=== PATIENT | male | born 1940 | race Two or more races ===

== ENCOUNTER → 2019-06-18 | Outpatient (CLI) | payer MEDICARE, MEDICAID ==
[~2019-06-18] MED LIST: FAMO-12 PO; FUR20T PO; HYDR10TA26 PO; LEVE100020 PO; LORA0.5T12 PO; SERT-274 PO; SIMV-13 PO; TAMS0.4C36 PO; TAMS1CAP25 PO
[2019-06-18 12:49] LABS: Basophils # (auto) 0.1 uL; Basophils % (auto) 1.3 % (0.0-2.0); Eosinophils # (auto) 0.2 uL; Eosinophils % (auto) 4.7 % (0.0-7.0); Hematocrit 38.3 % (41.0-53.0); Hemoglobin 12.7 g/dL (13.5-17.5); Lymphocytes # (auto) 0.4 uL; Lymphocytes % (auto) 9.5 % (10.0-50.0); Mean Corpuscular Hemoglobin 28.7 pg (28.0-32.0); Mean Corpuscular Hgb Conc. 33.2 g/dL (32.0-36.0); Mean Corpuscular Volume 86.6 fL (80.0-100.0); Monocytes # (auto) 0.6 uL; Monocytes % (auto) 14.7 % (0.0-12.0); Neutrophils # (auto) 2.6 uL; Neutrophils % (auto) 69.8 % (37.0-80.0); Nucleated Red Blood Cells % 0.1 %; Platelet Count (auto) 152 10^3/uL (140-450); Red Blood Cells 4.43 10^6/uL (4.5-5.90); Red Cell Distribution Width 18.2 % (11.8-14.3); White Blood Cell 3.8 10^3/uL (4.4-10.8)
[2019-06-18 13:31] LABS: Albumin 3.9 g/dL (3.4-5.0); Calcium 8.8 mg/dL (8.5-10.1); Potassium 3.7 mmol/L (3.5-5.1)
[2019-06-18 13:36] LABS: BUN/Creatinine Ratio 17.4; Bilirubin, Total 0.4 mg/dL (0.2-1.0); Total Protein 8.5 g/dL (6.4-8.2)
== END | disposition home or self-care (01) ==
LOC: LAB 11:47
PROVIDERS: ATTEND Nurse Practitioner
DX: E78.5 Hyperlipidemia, unspecified (principal); R97.20 Elevated prostate specific antigen [PSA]
CPT/HCPCS: 36415; 80053; 80061; 84153; 84154; 84443; 85025

== ENCOUNTER 2020-07-18 14:11 | Inpatient (IN) | payer MEDICARE, MEDICAID ==
[~2020-07-18] VITALS: Ht 172.7 cm; Wt 63.3 kg
[~2020-07-18 14:11] MED LIST changes: -ASPI-498 PO; -CARB6.5S44 OT; -FURO40TA4 PO; -LOSA-69 PO; -OXCA600T3 PO; -POTA1TAB64 PO
[2020-07-18] MEDS ORDERED: SODIUM CHLORIDE 0.9% 500 ML IV ONE (14:45)
[2020-07-18 15:45] LABS: White Blood Cell 3.4 10^3/uL (4.4-10.8)
[2020-07-18 15:47] LABS: Hematocrit 21.8 % (41.0-53.0); Mean Corpuscular Hemoglobin 14.6 pg (28.0-32.0); Mean Corpuscular Hgb Conc. 26.4 g/dL (32.0-36.0); Platelet Count (auto) 200 10^3/uL (140-450); Red Blood Cells 3.96 10^6/uL (4.5-5.90)
[2020-07-18 15:53] LABS: Hemoglobin 5.8 g/dL (13.5-17.5); Red Cell Distribution Width 22.6 % (11.8-14.3)
[2020-07-18 15:54] LABS: Basophils % (manual) 0 (0.0-2.0); Blast Cells 0; Eosinophils % (manual) 0 (0-7); Myelocytes % 0; Promyelocytes % 0; Reactive Lymphocytes 0
[2020-07-18] MEDS ORDERED: MORPHINE SULF INJ 2 MG/ML SYRINGE 1ML IV PRN (16:00)
[2020-07-18] MEDS ORDERED: NITROGLYCERIN 0.4 MG SL TAB SL PRN (16:00)
[2020-07-18 16:02] LABS: Albumin 3.7 g/dL (3.4-5.0); BUN/Creatinine Ratio 14.3; Calcium 8.7 mg/dL (8.5-10.1); Magnesium 1.9 mg/dL (1.6-2.6); Potassium 3.4 mmol/L (3.5-5.1)
[2020-07-18 16:11] LABS: Bilirubin, Total 0.5 mg/dL (0.2-1.0); Total Protein 7.4 g/dL (6.4-8.2)
[2020-07-18 16:23] LABS: INR 1.2 (0.9-1.15); Partial Thromboplastin Time 26.3 sec (23.0-31.2)
[2020-07-18 16:55] VITALS: BP 124/63
[2020-07-18 17:15] VITALS: BP 127/62
[2020-07-18] MEDS ORDERED: FURO40TA4 PO (17:16)
[2020-07-18] MEDS ORDERED: ASPI-498 PO (17:16)
[2020-07-18] MEDS ORDERED: OXCA600T3 PO (17:16)
[2020-07-18] MEDS ORDERED: POTA1TAB64 PO (17:16)
[2020-07-18] MEDS ORDERED: CARB6.5S44 OT (17:16)
[2020-07-18] MEDS ORDERED: LOSA-69 PO (17:16)
[2020-07-18 17:30] VITALS: BP 132/64
[2020-07-18 17:38] LABS: Band Neutrophils % (manual) 2; Lymphocytes % (manual) 12 (10.0-50.0); Metamyelocytes % 1; Monocytes % (manual) 6 (0-12)
[2020-07-18 18:00] VITALS: BP 135/72
[2020-07-18] MEDS ORDERED: LACTATED RINGER'S 1,000 ML IV ONE (19:30)
[2020-07-18] MEDS ORDERED: SODIUM CHLORIDE 0.9% 1,000 ML IV SCH (19:30)
[2020-07-18] MEDS ORDERED: POTASSIUM CHL 20 Meq TABLET PO ONE (19:30)
[2020-07-18] MEDS ORDERED: SODIUM FERR GLUC 62.5MG/5ML 125 MG in SODIUM CHL 0.9% 100 ML IV ONE (20:00)
[2020-07-18 21:00] VITALS: BP 172/82
[2020-07-18] MEDS: PANTOPRAZOLE 40 MG/10 ML VIAL INJ IV SCH (21:27)
[2020-07-18 22:10] VITALS: BP 169/96
[2020-07-18] MEDS: OXcarbazepine 300 MG TAB PO SCH (22:47)
[2020-07-18] MEDS: ATORVASTATIN 20 MG TAB PO SCH (22:47)
[2020-07-18] MEDS ORDERED: cloNIDine HCL 0.1 MG TAB PO ONE (23:00)
[2020-07-19 05:00] VITALS: BP 145/81
[2020-07-19] MEDS ORDERED: FUROSEMIDE 20 MG/2 ML VIAL IV SCH (06:00)
[2020-07-19 07:36] LABS: Basophils # (auto) 0 10 ^3/uL (0-0.2); Basophils % (auto) 0.8 % (0.0-2.0); Eosinophils # (auto) 0.1 10 ^3/uL (0-0.8); Eosinophils % (auto) 1.2 % (0.0-7.0); Hemoglobin 7.3 g/dL (13.5-17.5); Lymphocytes # (auto) 0.4 10 ^3/uL (0.4-5.4); Lymphocytes % (auto) 6.6 % (10.0-50.0); Mean Corpuscular Hemoglobin 15.4 pg (28.0-32.0); Mean Corpuscular Hgb Conc. 25.1 g/dL (32.0-36.0); Mean Corpuscular Volume 61.3 fL (80.0-100.0); Monocytes # (auto) 0.6 10 ^3/uL (0-1.3); Monocytes % (auto) 9.9 % (0.0-12.0); Neutrophils # (auto) 4.6 10 ^3/uL (1.6-8.6); Neutrophils % (auto) 81.5 % (37.0-80.0); Nucleated Red Blood Cells % 2.7 %; Platelet Count (auto) 162 10^3/uL (140-450); Red Blood Cells 4.73 10^6/uL (4.5-5.90); White Blood Cell 5.6 10^3/uL (4.4-10.8)
[2020-07-19] MEDS ORDERED: diphenhdrAMINE HCL 50 MG/1 ML VL ONE (08:13)
[2020-07-19] MEDS ORDERED: LIDOCAINE VISCOUS 2% 15ML UD ONE (08:13)
[2020-07-19] MEDS ORDERED: SODIUM CHLORIDE LOCK 10 ML ONE (08:13)
[2020-07-19] MEDS ORDERED: fentaNYL CITRATE 100 MCG/2 ML VL ONE (08:13)
[2020-07-19] MEDS ORDERED: MIDAZOLAM HCL 5 MG/ML-1ML VIAL ONE (08:13)
[2020-07-19 08:40] VITALS: BP 155/78
[2020-07-19] MEDS: OXcarbazepine 300 MG TAB PO SCH ×3 (09:38→22:23)
[2020-07-19] MEDS: PANTOPRAZOLE 40 MG/10 ML VIAL INJ IV SCH ×2 (09:38→22:00)
[2020-07-19] MEDS: SERTRALINE HCL 50 MG TAB PO SCH (09:39)
[2020-07-19] MEDS ORDERED: POTASSIUM CHL 20 Meq TABLET PO SCH (10:00)
[2020-07-19 12:00] VITALS: BP 144/87
[2020-07-19] MEDS ORDERED: IRON SUCROSE COMPLEX 200 MG in SODIUM CHL 0.9% 100 ML IV SCH (12:00)
[2020-07-19] MEDS: SODIUM FERR GLUC 62.5MG/5ML 125 MG in SODIUM CHL 0.9% 100 ML IV SCH (12:00)
[2020-07-19] MEDS ORDERED: SODIUM CHLORIDE 0.9% 1,000 ML IV SCH (13:45)
[2020-07-19] MEDS ORDERED: cefTRIAXone 1GM/50ML D5W 50 ML IV ONE (13:45)
[2020-07-19] MEDS ORDERED: AZITHROMYCIN 500MG/ 250ML 250 ML IV ONE (13:45)
[2020-07-19 17:00] VITALS: BP 106/55
[2020-07-19 18:32] LABS: Urine Bacteria NONE SEEN /hpf (None Seen); Urine Blood 3+ /uL (Negative); Urine WBC 8 /hpf (0 - 3)
[2020-07-19] MEDS: TAMSULOSIN HYDROCHLORIDE 0.4 MG CAP PO SCH (18:45)
[2020-07-19 21:19] VITALS: BP 148/86
[2020-07-19] MEDS: ATORVASTATIN 20 MG TAB PO SCH (22:23)
[2020-07-20 05:00] VITALS: BP 133/74
[2020-07-20 07:13] LABS: Hemoglobin 7.2 g/dL (13.5-17.5); White Blood Cell 5.6 10^3/uL (4.4-10.8)
[2020-07-20 07:15] LABS: Hematocrit 26.4 % (41.0-53.0); Mean Corpuscular Hemoglobin 15.5 pg (28.0-32.0); Mean Corpuscular Hgb Conc. 27.1 g/dL (32.0-36.0); Mean Corpuscular Volume 57.3 fL (80.0-100.0); Platelet Count (auto) 148 10^3/uL (140-450); Red Blood Cells 4.61 10^6/uL (4.5-5.90)
[2020-07-20 07:27] LABS: Calcium 8.5 mg/dL (8.5-10.1); Potassium 3.9 mmol/L (3.5-5.1)
[2020-07-20 07:28] LABS: Red Cell Distribution Width 24.3 % (11.8-14.3)
[2020-07-20 07:30] LABS: Basophils % (manual) 0 (0.0-2.0); Blast Cells 0; Metamyelocytes % 0; Myelocytes % 0; Promyelocytes % 0; Reactive Lymphocytes 0
[2020-07-20 07:33] LABS: BUN/Creatinine Ratio 15.2; Magnesium 2.1 mg/dL (1.6-2.6)
[2020-07-20 08:11] LABS: Band Neutrophils % (manual) 2; Eosinophils % (manual) 2 (0-7); Lymphocytes % (manual) 9 (10.0-50.0); Monocytes % (manual) 3 (0-12)
[2020-07-20 09:31] VITALS: BP_SYST 110; BP_SYST 177; BP_DIAS 67; BP_DIAS 87
[2020-07-20] MEDS ORDERED: GOLYTELY 4L KIT PO ONE (12:00)
[2020-07-20] MEDS: AZITHROMYCIN 500MG/ 250ML 250 ML IV SCH (12:03)
[2020-07-20] MEDS: PANTOPRAZOLE 40 MG/10 ML VIAL INJ IV SCH ×2 (12:03→21:33)
[2020-07-20] MEDS: cefTRIAXone 1GM/50ML D5W 50 ML IV SCH (12:04)
[2020-07-20] MEDS: OXcarbazepine 300 MG TAB PO SCH ×4 (12:04→21:34)
[2020-07-20] MEDS: SERTRALINE HCL 50 MG TAB PO SCH (12:05)
[2020-07-20] MEDS ORDERED: SODIUM CHLORIDE 0.9% 1,000 ML IV SCH (12:15)
[2020-07-20] MEDS ORDERED: FUROSEMIDE 40 MG/4 ML VIAL IV ONE (12:15)
[2020-07-20] MEDS ORDERED: POTASSIUM CHL 20 Meq TABLET PO ONE (12:15)
[2020-07-20 13:02] VITALS: BP 132/71
[2020-07-20] MEDS: SODIUM FERR GLUC 62.5MG/5ML 125 MG in SODIUM CHL 0.9% 100 ML IV SCH (14:00)
[2020-07-20 16:58] VITALS: BP 119/67
[2020-07-20] MEDS: TAMSULOSIN HYDROCHLORIDE 0.4 MG CAP PO SCH (17:47)
[2020-07-20] MEDS: ATORVASTATIN 20 MG TAB PO SCH (21:33)
[2020-07-20 22:00] VITALS: BP 134/62
[2020-07-21] MEDS ORDERED: GOLYTELY 4L KIT PO ONE (04:00)
[2020-07-21 05:04] VITALS: BP 153/73
[2020-07-21] MEDS ORDERED: NALOXONE HCL 0.4 MG/ML VIAL ONE (08:32)
[2020-07-21] MEDS ORDERED: SODIUM CHLORIDE LOCK 10 ML ONE (08:32)
[2020-07-21] MEDS ORDERED: FLUMAZENIL 0.1 MG/ML INJ 10ML MDV IV ONE (08:32)
[2020-07-21] MEDS ORDERED: diphenhdrAMINE HCL 50 MG/1 ML VL ONE (08:33)
[2020-07-21] MEDS ORDERED: fentaNYL CITRATE 100 MCG/2 ML VL ONE (08:34)
[2020-07-21 09:00] VITALS: BP 144/75
[2020-07-21] MEDS: MIDAZOLAM HCL 5 MG/ML-1ML VIAL ONE ×2 (09:53→10:07)
[2020-07-21] MEDS: OXcarbazepine 300 MG TAB PO SCH ×2 (10:00→14:24)
[2020-07-21] MEDS: cefTRIAXone 1GM/50ML D5W 50 ML IV SCH (11:30)
[2020-07-21] MEDS: PANTOPRAZOLE 40 MG/10 ML VIAL INJ IV SCH ×2 (11:33→21:49)
[2020-07-21] MEDS: SODIUM FERR GLUC 62.5MG/5ML 125 MG in SODIUM CHL 0.9% 100 ML IV SCH (12:08)
[2020-07-21 13:00] VITALS: BP 154/75
[2020-07-21 13:18] LABS: Hemoglobin 7.5 g/dL (13.5-17.5)
[2020-07-21] MEDS: FUROSEMIDE 40 MG TAB PO SCH (14:23)
[2020-07-21] MEDS: POTASSIUM CHL 20 Meq TABLET PO SCH (14:24)
[2020-07-21] MEDS: SERTRALINE HCL 50 MG TAB PO SCH (14:24)
[2020-07-21] MEDS: AZITHROMYCIN 500MG/ 250ML 250 ML IV SCH (14:25)
[2020-07-21] MEDS: HYDROcodone-ACET 5/325MG TAB PO PRN (14:30)
[2020-07-21 16:56] VITALS: BP 165/87
[2020-07-21] MEDS ORDERED: ENALAPRILAT 1.25 MG/ML-1ML VIAL IV PRN (17:45)
[2020-07-21] MEDS ORDERED: LOSARTAN POTASSIUM 50 MG TAB PO ONE (17:45)
[2020-07-21] MEDS: FERROUS SULFATE 325 MG TAB PO SCH (18:13)
[2020-07-21] MEDS: TAMSULOSIN HYDROCHLORIDE 0.4 MG CAP PO SCH (18:14)
[2020-07-21 19:30] VITALS: BP 126/57
[2020-07-21 20:37] VITALS: BP 137/74
[2020-07-21] MEDS: ATORVASTATIN 20 MG TAB PO SCH (21:49)
[2020-07-22] VITALS (10 sets, daily range): BP systolic 113–177; BP diastolic 61–78
[2020-07-22 06:27] LABS: Eosinophils # (auto) 0.1 10 ^3/uL (0-0.8); Hematocrit 24.1 % (41.0-53.0); Lymphocytes # (auto) 0.4 10 ^3/uL (0.4-5.4); Neutrophils # (auto) 3.8 10 ^3/uL (1.6-8.6)
[2020-07-22 06:28] LABS: BUN/Creatinine Ratio 8.6; Calcium 8.1 mg/dL (8.5-10.1); Magnesium 1.9 mg/dL (1.6-2.6); Potassium 3.7 mmol/L (3.5-5.1)
[2020-07-22 06:31] LABS: Basophils # (auto) 0 10 ^3/uL (0-0.2); Basophils % (auto) 0.7 % (0.0-2.0); Eosinophils % (auto) 2.8 % (0.0-7.0); Lymphocytes % (auto) 8.1 % (10.0-50.0); Mean Corpuscular Hgb Conc. 27.3 g/dL (32.0-36.0); Mean Corpuscular Volume 58.7 fL (80.0-100.0); Monocytes # (auto) 0.4 10 ^3/uL (0-1.3); Monocytes % (auto) 8.7 % (0.0-12.0); Neutrophils % (auto) 79.7 % (37.0-80.0); Nucleated Red Blood Cells % 1.8 %; Platelet Count (auto) 147 10^3/uL (140-450); White Blood Cell 4.7 10^3/uL (4.4-10.8)
[2020-07-22 06:58] LABS: Red Cell Distribution Width 24.6 % (11.8-14.3)
[2020-07-22 07:00] LABS: Hemoglobin 6.6 g/dL (13.5-17.5)
[2020-07-22] MEDS: cefTRIAXone 1GM/50ML D5W 50 ML IV SCH (08:55)
[2020-07-22] MEDS: FUROSEMIDE 40 MG TAB PO SCH (09:19)
[2020-07-22] MEDS: PANTOPRAZOLE 40 MG/10 ML VIAL INJ IV SCH ×2 (09:19→21:50)
[2020-07-22] MEDS: FERROUS SULFATE 325 MG TAB PO SCH ×2 (09:19→18:40)
[2020-07-22] MEDS: SERTRALINE HCL 50 MG TAB PO SCH (09:20)
[2020-07-22] MEDS: POTASSIUM CHL 20 Meq TABLET PO SCH (09:20)
[2020-07-22] MEDS ORDERED: LOSARTAN POTASSIUM 50 MG TAB PO SCH (10:00)
[2020-07-22] MEDS: AZITHROMYCIN 500MG/ 250ML 250 ML IV SCH (10:14)
[2020-07-22] MEDS ORDERED: FUROSEMIDE 40 MG/4 ML VIAL IV ONE (11:00)
[2020-07-22 14:38] LABS: Hemoglobin 7.3 g/dL (13.5-17.5)
[2020-07-22] MEDS: MAGNESIUM SULFATE 1GM/100ML 100 ML IV SCH ×2 (15:23→16:25)
[2020-07-22] MEDS: TAMSULOSIN HYDROCHLORIDE 0.4 MG CAP PO SCH (18:39)
[2020-07-22] MEDS: ATORVASTATIN 20 MG TAB PO SCH (21:50)
[2020-07-22] MEDS: SACUBITRIL-VALSARTAN 24mg/26mg TAB PO SCH (21:51)
[2020-07-22 22:05] LABS: Hemoglobin 7.7 g/dL (13.5-17.5)
[2020-07-22 22:07] LABS: Hematocrit 27.1 % (41.0-53.0)
[2020-07-23 04:00] VITALS: BP 140/71
[2020-07-23 04:40] VITALS: BP 140/71
[2020-07-23 05:42] LABS: Hematocrit 31.2 % (41.0-53.0)
[2020-07-23 06:00] LABS: Calcium 8.1 mg/dL (8.5-10.1); Magnesium 2.1 mg/dL (1.6-2.6); Potassium 3.6 mmol/L (3.5-5.1)
[2020-07-23 06:02] LABS: BUN/Creatinine Ratio 7.1
[2020-07-23] MEDS: SERTRALINE HCL 50 MG TAB PO SCH (08:15)
[2020-07-23] MEDS: FERROUS SULFATE 325 MG TAB PO SCH ×2 (08:15→18:00)
[2020-07-23] MEDS: AZITHROMYCIN 500MG/ 250ML 250 ML IV SCH (08:16)
[2020-07-23] MEDS: SACUBITRIL-VALSARTAN 24mg/26mg TAB PO SCH ×2 (08:16→21:47)
[2020-07-23] MEDS: cefTRIAXone 1GM/50ML D5W 50 ML IV SCH (08:18)
[2020-07-23] MEDS: PANTOPRAZOLE 40 MG/10 ML VIAL INJ IV SCH ×2 (08:18→21:47)
[2020-07-23] MEDS: FUROSEMIDE 40 MG/4 ML VIAL IV SCH (08:18)
[2020-07-23] MEDS: POTASSIUM CHL 20 Meq TABLET PO SCH (08:19)
[2020-07-23] MEDS: HYDROcodone-ACET 5/325MG TAB PO PRN (10:42)
[2020-07-23 13:00] VITALS: BP 113/61
[2020-07-23 13:58] LABS: Hemoglobin 9.4 g/dL (13.5-17.5)
[2020-07-23 14:00] LABS: Hematocrit 32.6 % (41.0-53.0)
[2020-07-23 17:00] VITALS: BP 103/63
[2020-07-23] MEDS: TAMSULOSIN HYDROCHLORIDE 0.4 MG CAP PO SCH (18:00)
[2020-07-23] MEDS: ATORVASTATIN 20 MG TAB PO SCH (21:47)
[2020-07-23 22:00] VITALS: BP 117/61
[2020-07-23 22:29] LABS: Hematocrit 32.8 % (41.0-53.0)
[2020-07-23 22:31] LABS: Hemoglobin 9.3 g/dL (13.5-17.5)
[2020-07-24 05:00] VITALS: BP 130/74
[2020-07-24 06:59] LABS: Basophils # (auto) 0.1 10 ^3/uL (0-0.2); Eosinophils # (auto) 0.1 10 ^3/uL (0-0.8); Hemoglobin 9.8 g/dL (13.5-17.5); Neutrophils # (auto) 3.5 10 ^3/uL (1.6-8.6); White Blood Cell 4.6 10^3/uL (4.4-10.8)
[2020-07-24 07:01] LABS: Eosinophils % (auto) 2.4 % (0.0-7.0); Hematocrit 32.9 % (41.0-53.0); Lymphocytes # (auto) 0.4 10 ^3/uL (0.4-5.4); Mean Corpuscular Hemoglobin 18.9 pg (28.0-32.0); Mean Corpuscular Hgb Conc. 29.8 g/dL (32.0-36.0); Mean Corpuscular Volume 63.6 fL (80.0-100.0); Monocytes # (auto) 0.5 10 ^3/uL (0-1.3); Monocytes % (auto) 11.2 % (0.0-12.0); Neutrophils % (auto) 76.4 % (37.0-80.0); Nucleated Red Blood Cells % 0.7 %; Platelet Count (auto) 139 10^3/uL (140-450); Red Blood Cells 5.17 10^6/uL (4.5-5.90)
[2020-07-24 07:10] LABS: Red Cell Distribution Width 30.8 % (11.8-14.3)
[2020-07-24 08:00] VITALS: BP 132/77
[2020-07-24 09:00] VITALS: BP 132/77
[2020-07-24] MEDS: SERTRALINE HCL 50 MG TAB PO SCH (09:11)
[2020-07-24] MEDS: SACUBITRIL-VALSARTAN 24mg/26mg TAB PO SCH ×2 (09:11→22:15)
[2020-07-24] MEDS: FERROUS SULFATE 325 MG TAB PO SCH ×2 (09:11→18:55)
[2020-07-24] MEDS: cefTRIAXone 1GM/50ML D5W 50 ML IV SCH (09:12)
[2020-07-24] MEDS: POTASSIUM CHL 20 Meq TABLET PO SCH (09:12)
[2020-07-24] MEDS: AZITHROMYCIN 500MG/ 250ML 250 ML IV SCH (09:12)
[2020-07-24] MEDS: FUROSEMIDE 40 MG/4 ML VIAL IV SCH (09:15)
[2020-07-24] MEDS: PANTOPRAZOLE 40 MG/10 ML VIAL INJ IV SCH ×2 (09:15→22:15)
[2020-07-24 13:00] VITALS: BP 100/61
[2020-07-24 14:40] LABS: Hemoglobin 9.4 g/dL (13.5-17.5)
[2020-07-24 14:42] LABS: Hematocrit 33.6 % (41.0-53.0)
[2020-07-24 17:00] VITALS: BP 151/82
[2020-07-24] MEDS: TAMSULOSIN HYDROCHLORIDE 0.4 MG CAP PO SCH (18:54)
[2020-07-24 22:00] VITALS: BP 136/85
[2020-07-24] MEDS: ATORVASTATIN 20 MG TAB PO SCH (22:15)
[2020-07-24 22:36] LABS: Hematocrit 36.8 % (41.0-53.0); Hemoglobin 10.2 g/dL (13.5-17.5)
[2020-07-25 05:00] VITALS: BP 120/75
[2020-07-25] MEDS: cefTRIAXone 1GM/50ML D5W 50 ML IV SCH (08:31)
[2020-07-25] MEDS: FERROUS SULFATE 325 MG TAB PO SCH (08:31)
[2020-07-25 09:00] VITALS: BP 133/73
[2020-07-25] MEDS: FUROSEMIDE 40 MG/4 ML VIAL IV SCH (10:12)
[2020-07-25] MEDS: SERTRALINE HCL 50 MG TAB PO SCH (10:12)
[2020-07-25] MEDS: POTASSIUM CHL 20 Meq TABLET PO SCH (10:12)
[2020-07-25] MEDS: PANTOPRAZOLE 40 MG/10 ML VIAL INJ IV SCH (10:12)
[2020-07-25] MEDS: SACUBITRIL-VALSARTAN 24mg/26mg TAB PO SCH (10:12)
[2020-07-25] MEDS: AZITHROMYCIN 500MG/ 250ML 250 ML IV SCH (10:12)
[2020-07-25 10:26] LABS: Hematocrit 32.9 % (41.0-53.0); Hemoglobin 9.3 g/dL (13.5-17.5)
[2020-07-25] MEDS ORDERED: FER325T PO (11:37)
[2020-07-25] MEDS ORDERED: POTA1TAB61 PO (11:37)
[2020-07-25] MEDS ORDERED: LEVO750T8 PO (11:37)
[2020-07-25] MEDS ORDERED: SACU1TAB PO (11:37)
[2020-07-25] MEDS ORDERED: PANT40TA2 PO (11:37)
[2020-07-25 12:35] VITALS: BP 110/70
[2020-07-25] MEDS ORDERED: DOCU-94 PO (12:55)
[2020-07-25 14:39] LABS: Hemoglobin 10.4 g/dL (13.5-17.5)
== END 2020-07-25 17:55 | disposition home health service (06) | DRG 377 ==
LOC: ER 14:11 → TELE 14:12 → TELE-EAST 21:30 → TELE-CENTR 07-19 12:43
PROVIDERS: ADMIT Hospitalist; ATTEND Internal Medicine
PROC: 30233N1 Transfusion of Nonautologous Red Blood Cells into Peripheral Vein, Percutaneous Approach (ICD-10-PCS; principal; 2020-07-18)
PROC: 0DB78ZX Excision of Stomach, Pylorus, Via Natural or Artificial Opening Endoscopic, Diagnostic (ICD-10-PCS; 2020-07-19)
PROC: 0D5H8ZZ Destruction of Cecum, Via Natural or Artificial Opening Endoscopic (ICD-10-PCS; 2020-07-21)
PROC: 0D5L8ZZ Destruction of Transverse Colon, Via Natural or Artificial Opening Endoscopic (ICD-10-PCS; 2020-07-21)
DX: K55.21 Angiodysplasia of colon with hemorrhage (principal); I21.A1 Myocardial infarction type 2; I50.43 Acute on chronic combined systolic (congestive) and diastolic (congestive) heart failure; J18.9 Pneumonia, unspecified organism; J96.00 Acute respiratory failure, unspecified whether with hypoxia or hypercapnia; D62 Acute posthemorrhagic anemia; F32.9 Major depressive disorder, single episode, unspecified; G40.909 Epilepsy, unspecified, not intractable, without status epilepticus; E78.5 Hyperlipidemia, unspecified; I11.0 Hypertensive heart disease with heart failure; K21.9 Gastro-esophageal reflux disease without esophagitis; E11.51 Type 2 diabetes mellitus with diabetic peripheral angiopathy without gangrene; F03.90 Unspecified dementia, unspecified severity, without behavioral disturbance, psychotic disturbance, mood disturbance, and anxiety; J43.9 Emphysema, unspecified; K29.70 Gastritis, unspecified, without bleeding; K29.80 Duodenitis without bleeding; K57.30 Diverticulosis of large intestine without perforation or abscess without bleeding; Z20.828 Contact with and (suspected) exposure to other viral communicable diseases; F41.9 Anxiety disorder, unspecified; H54.8 Legal blindness, as defined in USA; N40.1 Benign prostatic hyperplasia with lower urinary tract symptoms; I35.0 Nonrheumatic aortic (valve) stenosis; I25.10 Atherosclerotic heart disease of native coronary artery without angina pectoris; Z87.891 Personal history of nicotine dependence; Z86.73 Personal history of transient ischemic attack (TIA), and cerebral infarction without residual deficits; I25.2 Old myocardial infarction; Z79.4 Long term (current) use of insulin; Z79.899 Other long term (current) drug therapy; Z82.49 Family history of ischemic heart disease and other diseases of the circulatory system; Z83.3 Family history of diabetes mellitus; Z95.1 Presence of aortocoronary bypass graft; Z88.0 Allergy status to penicillin; Z79.891 Long term (current) use of opiate analgesic; Z79.01 Long term (current) use of anticoagulants; Z79.82 Long term (current) use of aspirin
CPT/HCPCS: 36415; 36430; 71045; 80048; 80053; 80061; 81001; 82270; 82962; 83735; 83880; 84132; 84154; 84443; 84484; 85007; 85014; 85018; 85025; 85027; 85610; 85730; 86850; 86900; 86901; 86920; 87040; 87086; 87426; 93005; 93306; 96360; C9113; G0378; J0696; J2250

== ENCOUNTER → 2020-07-18 | Outpatient (CLI) | payer MEDICARE, MEDICAID ==
[~2020-07-18] MED LIST changes: +ASPI-498 PO; +CARB6.5S44 OT; +FURO40TA4 PO; -LORA0.5T12 PO; +LORA0.5T20 PO; +LOSA-69 PO; +OXCA600T3 PO; +POTA1TAB64 PO
[2020-07-18 09:55] LABS: White Blood Cell 3.8 10^3/uL (4.4-10.8)
[2020-07-18 09:57] LABS: Basophils # (auto) 0.1 10 ^3/uL (0-0.2); Basophils % (auto) 2.4 % (0.0-2.0); Eosinophils # (auto) 0.1 10 ^3/uL (0-0.8); Eosinophils % (auto) 2.1 % (0.0-7.0); Hematocrit 20.4 % (41.0-53.0); Lymphocytes # (auto) 0.4 10 ^3/uL (0.4-5.4); Lymphocytes % (auto) 10.2 % (10.0-50.0); Mean Corpuscular Hemoglobin 14.4 pg (28.0-32.0); Mean Corpuscular Hgb Conc. 25.9 g/dL (32.0-36.0); Mean Corpuscular Volume 55.6 fL (80.0-100.0); Monocytes # (auto) 0.5 10 ^3/uL (0-1.3); Monocytes % (auto) 13.2 % (0.0-12.0); Neutrophils # (auto) 2.8 10 ^3/uL (1.6-8.6); Neutrophils % (auto) 72.1 % (37.0-80.0); Nucleated Red Blood Cells % 2.1 %; Platelet Count (auto) 181 10^3/uL (140-450); Red Blood Cells 3.67 10^6/uL (4.5-5.90)
[2020-07-18 09:59] LABS: Urine WBC None Seen /hpf (0 - 3)
[2020-07-18 10:06] LABS: Urine Bacteria NONE SEEN /hpf (None Seen); Urine Blood Negative /uL (Negative); Urine Hyaline Cast FEW /lpf (0 - 2); Urine Specific Gravity 1.017 (1.001-1.035)
[2020-07-18 10:24] LABS: Hemoglobin 5.3 g/dL (13.5-17.5); Red Cell Distribution Width 22.3 % (11.8-14.3)
[2020-07-18 10:28] LABS: Albumin 3.7 g/dL (3.4-5.0); Potassium 4.1 mmol/L (3.5-5.1)
[2020-07-18 10:34] LABS: BUN/Creatinine Ratio 13.7; Bilirubin, Total 0.6 mg/dL (0.2-1.0); Total Protein 7.4 g/dL (6.4-8.2)
== END | disposition home or self-care (01) ==
LOC: LAB 09:30
PROVIDERS: ATTEND Student in an Organized Health Care Education/Training Program
DX: I10 Essential (primary) hypertension (principal); R60.0 Localized edema
CPT/HCPCS: 36415; 80053; 80061; 81001; 83880; 84443; 85025

== ENCOUNTER 2022-09-02 04:54 | Inpatient (IN) | payer MEDICARE, MEDICAID ==
[~2022-09-02] VITALS: Ht 177.8 cm; Wt 57.6 kg
[~2022-09-02 04:54] MED LIST changes: +ASPI-498 PO; +CARB6.5S44 OT; +DOCU-94 PO; -FAMO-12 PO; +FER325T PO; -FUR20T PO; +FURO40TA4 PO; -HYDR10TA26 PO; -LEVE100020 PO; +LEVO750T8 PO; -LORA0.5T20 PO; +OXCA600T3 PO; +PANT40TA2 PO; +POTA1TAB64 PO; +SACU1TAB PO; -SERT-274 PO; +SERT50TA19 PO; -TAMS0.4C36 PO
[2022-09-02 06:53] LABS: Basophils # (auto) 0 10 ^3/uL (0-0.2); Basophils % (auto) 0.5 % (0.0-2.0); Eosinophils # (auto) 0 10 ^3/uL (0-0.8); Eosinophils % (auto) 0.5 % (0.0-7.0); Hematocrit 44.8 % (41.0-53.0); Hemoglobin 14.6 g/dL (13.5-17.5); Lymphocytes # (auto) 0.4 10 ^3/uL (0.4-5.4); Lymphocytes % (auto) 8.4 % (10.0-50.0); Mean Corpuscular Hemoglobin 31.5 pg (28.0-32.0); Mean Corpuscular Hgb Conc. 32.7 g/dL (32.0-36.0); Mean Corpuscular Volume 96.5 fL (80.0-100.0); Monocytes # (auto) 0.4 10 ^3/uL (0-1.3); Monocytes % (auto) 8.9 % (0.0-12.0); Neutrophils # (auto) 3.5 10 ^3/uL (1.6-8.6); Neutrophils % (auto) 81.7 % (37.0-80.0); Nucleated Red Blood Cells % 0.1 %; Red Blood Cells 4.65 10^6/uL (4.5-5.90); Red Cell Distribution Width 14.1 % (11.8-14.3); White Blood Cell 4.3 10^3/uL (4.4-10.8)
[2022-09-02 07:09] LABS: INR 1.13 (0.9-1.15); Partial Thromboplastin Time 26.6 sec (24.6-33.4)
[2022-09-02 07:38] LABS: Alanine Aminotransferase 43 U/L (16-61); Albumin 3.7 g/dL (3.4-5.0); Anion Gap 11 (5-15); Aspartate Aminotransferase 47 U/L (15-37); BUN/Creatinine Ratio 16.7; Blood Alcohol < 3.0 mg/dL (0-5); Blood Urea Nitrogen 18 mg/dL (7-18); Calcium 9.2 mg/dL (8.5-10.1); Carbon Dioxide 24 mmol/L (21-32); Chloride 105 mmol/L (98-107); GFR African American 84 mL/min; GFR Non-African American 70 mL/min; Glucose 83 mg/dL (74-106); Magnesium 2.1 mg/dL (1.6-2.6); Potassium 4.2 mmol/L (3.5-5.1); Sodium 140 mmol/L (136-145)
[2022-09-02 07:41] LABS: Alkaline Phosphatase 96 U/L (45-117); Bilirubin, Total 0.3 mg/dL (0.2-1.0); Total Protein 7.7 g/dL (6.4-8.2)
[2022-09-02] MEDS ORDERED: IOHEXOL 350 MG/ML 100ML IJ ONE (08:44)
[2022-09-02] MEDS ORDERED: ENOXAPARIN SOD 60 MG/0.6 ML SYRINGE SC ONE (13:30)
[2022-09-02] MEDS ORDERED: MORPHINE SULFATE INJ 2 MG/ml SYRG IV PRN (14:00)
[2022-09-02] MEDS ORDERED: NITROGLYCERIN 0.4 MG SL TAB SL PRN (14:00)
[2022-09-02] MEDS ORDERED: FUROSEMIDE 20 MG/2 ML VIAL IV ONE (14:15)
[2022-09-02] MEDS ORDERED: NITROGLYCERIN 0.4MG/HR TOPICAL PATCH TD ONE (14:45)
[2022-09-02] MEDS ORDERED: LIDOCAINE 2%HCL (LOCAL ANESTH.) INJ 10ml MDV ONE (15:16)
[2022-09-02 15:49] LABS: Urine Bacteria NONE SEEN /hpf (None Seen); Urine Blood 2+ /uL (Negative); Urine WBC <1 /hpf (0 - 3)
[2022-09-02 15:52] LABS: Urine Specific Gravity > 1.050 (1.001-1.035)
[2022-09-02 16:41] LABS: Amphetamine Screen, Urine NEGATIVE (NEGATIVE); Barbiturate Scree,Urine NEGATIVE (NEGATIVE); Benzodiazephine Screen, Urine NEGATIVE (NEGATIVE); Cannabinoid Screen, Urine NEGATIVE (NEGATIVE); Cocaine Screen, Urine NEGATIVE (NEGATIVE); Opiate Scree,Urine NEGATIVE (NEGATIVE); Phencyclidine Screen, Urine NEGATIVE (NEGATIVE)
[2022-09-02 17:31] LABS: Cholesterol 147 mg/dL (< 200); Triglycerides 30 mg/dL (< 150)
[2022-09-02 17:33] LABS: HDL Cholesterol 59 mg/dL (40-59); LDL Cholesterol 92 mg/dL (< 100)
[2022-09-02 22:00] VITALS: BP 180/95
[2022-09-02 23:12] VITALS: BP 180/95
[2022-09-02 23:21] VITALS: BP 180/95
[2022-09-02] MEDS: ATORVASTATIN 20 MG TAB PO SCH (23:29)
[2022-09-02] MEDS: ENOXAPARIN SOD 100 MG/1 ML SYRINGE SC SCH (23:29)
[2022-09-03] VITALS (7 sets, daily range): BP systolic 103–152; BP diastolic 61–77
[2022-09-03 06:30] LABS: Basophils # (auto) 0 10 ^3/uL (0-0.2); Basophils % (auto) 0.8 % (0.0-2.0); Eosinophils # (auto) 0 10 ^3/uL (0-0.8); Eosinophils % (auto) 1.2 % (0.0-7.0); Hematocrit 42.8 % (41.0-53.0); Hemoglobin 14.6 g/dL (13.5-17.5); Lymphocytes # (auto) 0.4 10 ^3/uL (0.4-5.4); Lymphocytes % (auto) 13.4 % (10.0-50.0); Mean Corpuscular Hgb Conc. 34.1 g/dL (32.0-36.0); Mean Corpuscular Volume 93.8 fL (80.0-100.0); Monocytes # (auto) 0.5 10 ^3/uL (0-1.3); Monocytes % (auto) 15.5 % (0.0-12.0); Neutrophils # (auto) 2.2 10 ^3/uL (1.6-8.6); Neutrophils % (auto) 69.1 % (37.0-80.0); Nucleated Red Blood Cells % 0.2 %; Red Blood Cells 4.56 10^6/uL (4.5-5.90); Red Cell Distribution Width 13.8 % (11.8-14.3); White Blood Cell 3.2 10^3/uL (4.4-10.8)
[2022-09-03 06:38] LABS: Calcium 9.3 mg/dL (8.5-10.1)
[2022-09-03 06:40] LABS: BUN/Creatinine Ratio 16.9
[2022-09-03] MEDS: ENOXAPARIN SOD 100 MG/1 ML SYRINGE SC SCH (09:34)
[2022-09-03] MEDS: ASPirin 81 mg TAB PO SCH (09:34)
[2022-09-03] MEDS: FUROSEMIDE 20 MG/2 ML VIAL IV SCH (09:34)
[2022-09-03 12:42] LABS: Urine Bacteria NONE SEEN /hpf (None Seen); Urine Blood 2+ /uL (Negative); Urine Hyaline Cast FEW /lpf (0 - 2); Urine Specific Gravity 1.007 (1.001-1.035); Urine WBC 1 /hpf (0 - 3)
[2022-09-03 12:48] LABS: Alcohol, Urine < 3.0 mg/dL (0-10); Amphetamine Screen, Urine NEGATIVE (NEGATIVE); Barbiturate Scree,Urine NEGATIVE (NEGATIVE); Benzodiazephine Screen, Urine NEGATIVE (NEGATIVE); Cannabinoid Screen, Urine NEGATIVE (NEGATIVE); Cocaine Screen, Urine NEGATIVE (NEGATIVE); Opiate Scree,Urine NEGATIVE (NEGATIVE); Phencyclidine Screen, Urine NEGATIVE (NEGATIVE)
[2022-09-03] MEDS ORDERED: hydrALAZINE HCL 20 MG/ML VL IV PRN (16:45)
[2022-09-03] MEDS ORDERED: SODIUM CHLORIDE 0.9% 500 ML IV ONE (18:30)
[2022-09-03] MEDS ORDERED: LORazepam 2MG/ML-1ML VIAL IV PRN (20:45)
[2022-09-03] MEDS: OXcarbazepine 300 MG TAB PO SCH (21:40)
[2022-09-03] MEDS: SACUBITRIL-VALSARTAN 24mg/26mg TAB PO SCH (21:40)
[2022-09-03] MEDS: ATORVASTATIN 20 MG TAB PO SCH (21:40)
[2022-09-03] MEDS: ENOXAPARIN SOD 60 MG/0.6 ML SYRINGE SC SCH (21:41)
[2022-09-04 05:00] VITALS: BP 135/75
[2022-09-04 08:00] VITALS: BP 144/87
[2022-09-04 09:00] VITALS: BP 144/87
[2022-09-04] MEDS: SACUBITRIL-VALSARTAN 24mg/26mg TAB PO SCH ×2 (09:33→21:08)
[2022-09-04] MEDS: ASPirin 81 mg TAB PO SCH (09:33)
[2022-09-04] MEDS: FUROSEMIDE 20 MG/2 ML VIAL IV SCH ×2 (09:33→17:47)
[2022-09-04] MEDS: OXcarbazepine 300 MG TAB PO SCH ×2 (09:35→21:07)
[2022-09-04] MEDS: ENOXAPARIN SOD 60 MG/0.6 ML SYRINGE SC SCH ×2 (09:35→21:07)
[2022-09-04 13:00] VITALS: BP 114/69
[2022-09-04] MEDS: ATORVASTATIN 20 MG TAB PO SCH (21:07)
[2022-09-04 22:00] VITALS: BP 97/59
[2022-09-05] VITALS (8 sets, daily range): BP systolic 114–167; BP diastolic 69–84
[2022-09-05 05:41] LABS: INR 1.18 (0.9-1.15); Partial Thromboplastin Time 35.3 sec (24.6-33.4)
[2022-09-05 05:43] LABS: Hematocrit 42.2 % (41.0-53.0); Hemoglobin 14.2 g/dL (13.5-17.5); Mean Corpuscular Hemoglobin 31.6 pg (28.0-32.0); Mean Corpuscular Hgb Conc. 33.7 g/dL (32.0-36.0); Mean Corpuscular Volume 93.6 fL (80.0-100.0); Red Blood Cells 4.51 10^6/uL (4.5-5.90); Red Cell Distribution Width 13.8 % (11.8-14.3); White Blood Cell 3.1 10^3/uL (4.4-10.8)
[2022-09-05 05:47] LABS: Calcium 8.7 mg/dL (8.5-10.1); Potassium 3.6 mmol/L (3.5-5.1)
[2022-09-05 05:50] LABS: Band Neutrophils % (manual) 0; Basophils % (manual) 0 (0.0-2.0); Blast Cells 0; Metamyelocytes % 0; Myelocytes % 0; Promyelocytes % 0; Reactive Lymphocytes 0
[2022-09-05] MEDS: FUROSEMIDE 20 MG/2 ML VIAL IV SCH ×2 (07:28→17:56)
[2022-09-05 07:31] LABS: Eosinophils % (manual) 1 (0-7); Lymphocytes % (manual) 11 (10.0-50.0); Monocytes % (manual) 18 (0-12)
[2022-09-05] MEDS: ASPirin 81 mg TAB PO SCH (09:34)
[2022-09-05] MEDS: SACUBITRIL-VALSARTAN 24mg/26mg TAB PO SCH ×2 (09:34→21:14)
[2022-09-05] MEDS: OXcarbazepine 300 MG TAB PO SCH ×2 (09:34→21:15)
[2022-09-05] MEDS: ENOXAPARIN SOD 60 MG/0.6 ML SYRINGE SC SCH ×2 (09:37→21:16)
[2022-09-05] MEDS ORDERED: IODIXANOL 320MG/ML 100ML BTL IV ONE ×3 (12:01→13:06)
[2022-09-05] MEDS ORDERED: LIDOCAINE 2%HCL (LOCAL ANESTH.) INJ 20ML MDV ONE (12:01)
[2022-09-05] MEDS ORDERED: ANGIOMAX 250 MG VIAL IV ONE (12:14)
[2022-09-05] MEDS ORDERED: fentaNYL CITRATE 100 MCG/2 ML VL ONE (12:14)
[2022-09-05] MEDS ORDERED: MIDAZOLAM HCL 2MG/2ML 2ml VIAL (1mg/ml) ONE (12:15)
[2022-09-05] MEDS ORDERED: SODIUM CHL 0.9% 0 ML ONE (12:15)
[2022-09-05] MEDS ORDERED: VERAPAMIL 2.5MG/ML INJ 2ML VIAL IV ONE (12:32)
[2022-09-05] MEDS ORDERED: HEPARIN SODIUM (PORCINE) 5000 UNITS/ML 1ML VIAL ONE (12:32)
[2022-09-05] MEDS: ATORVASTATIN 20 MG TAB PO SCH (21:14)
[2022-09-06 05:00] VITALS: BP 124/68
[2022-09-06] MEDS: FUROSEMIDE 20 MG/2 ML VIAL IV SCH ×2 (05:35→17:31)
[2022-09-06] MEDS: ASPirin 81 mg TAB PO SCH (08:34)
[2022-09-06] MEDS: ENOXAPARIN SOD 60 MG/0.6 ML SYRINGE SC SCH ×2 (08:35→21:42)
[2022-09-06 09:00] VITALS: BP 107/67
[2022-09-06] MEDS: OXcarbazepine 300 MG TAB PO SCH ×2 (09:36→21:39)
[2022-09-06] MEDS: PANTOPRAZOLE 40 MG TAB PO SCH (09:37)
[2022-09-06] MEDS: SACUBITRIL-VALSARTAN 24mg/26mg TAB PO SCH ×2 (09:39→21:39)
[2022-09-06] MEDS ORDERED: SERTRALINE HCL 50 MG TAB PO ONE (10:30)
[2022-09-06 13:00] VITALS: BP 104/53
[2022-09-06 16:55] VITALS: BP 108/61
[2022-09-06] MEDS: ATORVASTATIN 20 MG TAB PO SCH (21:39)
[2022-09-06 22:00] VITALS: BP 112/66
[2022-09-07] VITALS (9 sets, daily range): BP systolic 89–115; BP diastolic 57–72
[2022-09-07] MEDS: FUROSEMIDE 20 MG/2 ML VIAL IV SCH ×2 (05:35→17:19)
[2022-09-07 06:09] LABS: Basophils # (auto) 0 10 ^3/uL (0-0.2); Basophils % (auto) 0.3 % (0.0-2.0); Eosinophils # (auto) 0.1 10 ^3/uL (0-0.8); Eosinophils % (auto) 1.4 % (0.0-7.0); Hematocrit 38.7 % (41.0-53.0); Hemoglobin 12.9 g/dL (13.5-17.5); Lymphocytes # (auto) 0.4 10 ^3/uL (0.4-5.4); Lymphocytes % (auto) 8.6 % (10.0-50.0); Mean Corpuscular Hemoglobin 31.4 pg (28.0-32.0); Mean Corpuscular Hgb Conc. 33.3 g/dL (32.0-36.0); Mean Corpuscular Volume 94.2 fL (80.0-100.0); Monocytes # (auto) 0.6 10 ^3/uL (0-1.3); Monocytes % (auto) 13.7 % (0.0-12.0); Neutrophils # (auto) 3.5 10 ^3/uL (1.6-8.6); Nucleated Red Blood Cells % 0.1 %; Red Blood Cells 4.11 10^6/uL (4.5-5.90); Red Cell Distribution Width 14.1 % (11.8-14.3); White Blood Cell 4.6 10^3/uL (4.4-10.8)
[2022-09-07 06:21] LABS: INR 1.12 (0.9-1.15); Partial Thromboplastin Time 32.2 sec (24.6-33.4)
[2022-09-07 06:34] LABS: BUN/Creatinine Ratio 18.7; Calcium 8.5 mg/dL (8.5-10.1); Potassium 3.7 mmol/L (3.5-5.1)
[2022-09-07] MEDS: ENOXAPARIN SOD 60 MG/0.6 ML SYRINGE SC SCH ×2 (09:08→22:00)
[2022-09-07] MEDS: ASPirin 81 mg TAB PO SCH (09:08)
[2022-09-07] MEDS: SACUBITRIL-VALSARTAN 24mg/26mg TAB PO SCH ×2 (09:10→22:29)
[2022-09-07] MEDS: OXcarbazepine 300 MG TAB PO SCH ×2 (09:10→22:30)
[2022-09-07] MEDS: PANTOPRAZOLE 40 MG TAB PO SCH (09:11)
[2022-09-07] MEDS: SERTRALINE HCL 50 MG TAB PO SCH (09:11)
[2022-09-07] MEDS ORDERED: fentaNYL CITRATE 100 MCG/2 ML VL ONE (11:33)
[2022-09-07] MEDS ORDERED: MIDAZOLAM HCL 2MG/2ML 2ml VIAL (1mg/ml) ONE (11:34)
[2022-09-07] MEDS ORDERED: LIDOCAINE 2%HCL (LOCAL ANESTH.) INJ 20ML MDV ONE ×2 (11:34→11:57)
[2022-09-07] MEDS ORDERED: IODIXANOL 320MG/ML 100ML BTL IV ONE (11:34)
[2022-09-07] MEDS ORDERED: VANCOMYCIN 1GM/250ML 250 ML IV ONE (11:35)
[2022-09-07] MEDS ORDERED: VANCOMYCIN HCL 1000 MG VL ONE (11:38)
[2022-09-07] MEDS ORDERED: PHENYLEPHRINE HCL 10 MG/ML VL ONE (12:28)
[2022-09-07] MEDS ORDERED: DOPamine 1600MCG/ML D5W 250 ML IV ONE (12:30)
[2022-09-07] MEDS: ATORVASTATIN 20 MG TAB PO SCH (22:30)
[2022-09-08 05:00] VITALS: BP 114/73
[2022-09-08] MEDS: FUROSEMIDE 20 MG/2 ML VIAL IV SCH ×2 (06:18→18:00)
[2022-09-08 07:30] VITALS: BP 114/72
[2022-09-08 08:30] VITALS: BP 111/73
[2022-09-08] MEDS: PANTOPRAZOLE 40 MG TAB PO SCH (09:12)
[2022-09-08] MEDS: ASPirin 81 mg TAB PO SCH (09:12)
[2022-09-08] MEDS: OXcarbazepine 300 MG TAB PO SCH ×2 (09:13→22:11)
[2022-09-08] MEDS: ENOXAPARIN SOD 60 MG/0.6 ML SYRINGE SC SCH ×2 (09:13→22:11)
[2022-09-08] MEDS: SACUBITRIL-VALSARTAN 24mg/26mg TAB PO SCH ×2 (09:13→22:11)
[2022-09-08] MEDS: SERTRALINE HCL 50 MG TAB PO SCH (09:13)
[2022-09-08 13:30] VITALS: BP 124/80
[2022-09-08 16:30] VITALS: BP 92/62
[2022-09-08] MEDS: CARVEDILOL 3.125 MG TAB PO SCH (21:53)
[2022-09-08 22:00] VITALS: BP 107/70
[2022-09-08] MEDS: ATORVASTATIN 20 MG TAB PO SCH (22:11)
[2022-09-09 05:26] VITALS: BP 129/76
[2022-09-09] MEDS: FUROSEMIDE 20 MG/2 ML VIAL IV SCH ×2 (06:28→17:02)
[2022-09-09 06:44] LABS: Basophils # (auto) 0 10 ^3/uL (0-0.2); Basophils % (auto) 0.8 % (0.0-2.0); Eosinophils # (auto) 0.1 10 ^3/uL (0-0.8); Eosinophils % (auto) 1.8 % (0.0-7.0); Hematocrit 41.3 % (41.0-53.0); Hemoglobin 13.6 g/dL (13.5-17.5); Lymphocytes # (auto) 0.5 10 ^3/uL (0.4-5.4); Lymphocytes % (auto) 11.6 % (10.0-50.0); Mean Corpuscular Hemoglobin 30.9 pg (28.0-32.0); Mean Corpuscular Volume 93.7 fL (80.0-100.0); Monocytes # (auto) 0.6 10 ^3/uL (0-1.3); Monocytes % (auto) 16.1 % (0.0-12.0); Neutrophils # (auto) 2.8 10 ^3/uL (1.6-8.6); Neutrophils % (auto) 69.7 % (37.0-80.0); Nucleated Red Blood Cells % 0.1 %; Red Cell Distribution Width 13.5 % (11.8-14.3)
[2022-09-09 09:00] VITALS: BP 116/76
[2022-09-09] MEDS: SACUBITRIL-VALSARTAN 24mg/26mg TAB PO SCH ×2 (09:56→22:32)
[2022-09-09] MEDS: ASPirin 81 mg TAB PO SCH (09:56)
[2022-09-09] MEDS: OXcarbazepine 300 MG TAB PO SCH ×2 (09:56→22:32)
[2022-09-09] MEDS: PANTOPRAZOLE 40 MG TAB PO SCH (09:56)
[2022-09-09] MEDS: SERTRALINE HCL 50 MG TAB PO SCH (09:56)
[2022-09-09] MEDS: CARVEDILOL 3.125 MG TAB PO SCH ×2 (09:57→22:31)
[2022-09-09] MEDS: ENOXAPARIN SOD 60 MG/0.6 ML SYRINGE SC SCH ×2 (09:57→22:32)
[2022-09-09 10:39] LABS: INR 1.12 (0.9-1.15); Partial Thromboplastin Time 33.8 sec (24.6-33.4)
[2022-09-09 11:03] LABS: Calcium 8.5 mg/dL (8.5-10.1); Potassium 3.8 mmol/L (3.5-5.1)
[2022-09-09 11:07] LABS: BUN/Creatinine Ratio 17.2; Bilirubin, Total 0.4 mg/dL (0.2-1.0); Total Protein 6.8 g/dL (6.4-8.2)
[2022-09-09 13:00] VITALS: BP 89/63
[2022-09-09 13:30] VITALS: BP 95/58
[2022-09-09 16:54] VITALS: BP 102/73
[2022-09-09] MEDS: ATORVASTATIN 20 MG TAB PO SCH (22:32)
[2022-09-09 23:36] VITALS: BP 121/78
[2022-09-10] VITALS (10 sets, daily range): BP systolic 80–138; BP diastolic 57–85
[2022-09-10] MEDS: FUROSEMIDE 20 MG/2 ML VIAL IV SCH ×2 (06:15→17:50)
[2022-09-10] MEDS: ASPirin 81 mg TAB PO SCH (08:32)
[2022-09-10] MEDS: CARVEDILOL 3.125 MG TAB PO SCH ×2 (08:33→22:55)
[2022-09-10] MEDS: OXcarbazepine 300 MG TAB PO SCH ×2 (08:33→22:54)
[2022-09-10] MEDS: SACUBITRIL-VALSARTAN 24mg/26mg TAB PO SCH ×2 (08:33→22:54)
[2022-09-10] MEDS: PANTOPRAZOLE 40 MG TAB PO SCH (08:33)
[2022-09-10] MEDS: ENOXAPARIN SOD 60 MG/0.6 ML SYRINGE SC SCH ×2 (08:34→22:55)
[2022-09-10] MEDS: SERTRALINE HCL 50 MG TAB PO SCH (08:34)
[2022-09-10] MEDS ORDERED: LIDOCAINE 2%HCL (LOCAL ANESTH.) INJ 20ML MDV ONE (14:10)
[2022-09-10] MEDS ORDERED: IOHEXOL 350 MG/ML 100ML IJ ONE (14:10)
[2022-09-10] MEDS ORDERED: ANGIOMAX 250 MG VIAL IV ONE (14:14)
[2022-09-10] MEDS ORDERED: SODIUM CHL 0.9% 50 ML ONE (14:14)
[2022-09-10] MEDS ORDERED: MIDAZOLAM HCL 2MG/2ML 2ml VIAL (1mg/ml) ONE (14:14)
[2022-09-10] MEDS ORDERED: fentaNYL CITRATE 100 MCG/2 ML VL ONE (14:14)
[2022-09-10] MEDS: ATORVASTATIN 20 MG TAB PO SCH (22:54)
[2022-09-11 05:00] VITALS: BP 116/77
[2022-09-11] MEDS: FUROSEMIDE 20 MG/2 ML VIAL IV SCH ×2 (06:10→17:30)
[2022-09-11] MEDS: ASPirin 81 mg TAB PO SCH (08:06)
[2022-09-11] MEDS: SERTRALINE HCL 50 MG TAB PO SCH (08:06)
[2022-09-11] MEDS: SACUBITRIL-VALSARTAN 24mg/26mg TAB PO SCH ×2 (08:06→22:02)
[2022-09-11] MEDS: APIXABAN 5 MG TAB PO SCH ×2 (08:06→22:03)
[2022-09-11] MEDS: OXcarbazepine 300 MG TAB PO SCH ×2 (08:06→22:04)
[2022-09-11] MEDS: PANTOPRAZOLE 40 MG TAB PO SCH (08:06)
[2022-09-11] MEDS: CARVEDILOL 3.125 MG TAB PO SCH ×2 (08:10→22:00)
[2022-09-11 08:38] VITALS: BP 100/64
[2022-09-11 12:51] VITALS: BP 105/69
[2022-09-11 16:29] VITALS: BP 99/54
[2022-09-11 22:00] VITALS: BP 83/56
[2022-09-11] MEDS: ATORVASTATIN 20 MG TAB PO SCH (22:02)
[2022-09-12 05:00] VITALS: BP 110/69
[2022-09-12] MEDS: FUROSEMIDE 20 MG/2 ML VIAL IV SCH (06:31)
[2022-09-12] MEDS: CARVEDILOL 3.125 MG TAB PO SCH (08:17)
[2022-09-12] MEDS: APIXABAN 5 MG TAB PO SCH (08:30)
[2022-09-12] MEDS: OXcarbazepine 300 MG TAB PO SCH (08:31)
[2022-09-12] MEDS: SACUBITRIL-VALSARTAN 24mg/26mg TAB PO SCH (08:31)
[2022-09-12] MEDS: PANTOPRAZOLE 40 MG TAB PO SCH (08:31)
[2022-09-12] MEDS: SERTRALINE HCL 50 MG TAB PO SCH (08:31)
[2022-09-12] MEDS ORDERED: IODIXANOL 320MG/ML 100ML BTL IV ONE (08:56)
[2022-09-12] MEDS ORDERED: LIDOCAINE 2%HCL (LOCAL ANESTH.) INJ 20ML MDV ONE (08:57)
[2022-09-12 09:00] VITALS: BP 90/63
[2022-09-12] MEDS ORDERED: CLOPIDOGREL BISULFATE 75 MG TAB PO SCH (10:00)
[2022-09-12] MEDS ORDERED: ASPirin 81 mg TAB PO SCH (10:00)
[2022-09-12 10:57] VITALS: BP 90/63
== END 2022-09-12 13:50 | DRG 270 ==
LOC: ER 04:54 → EDBD 04:54 → TELE 14:00 → TELE-WESTW 22:35
PROVIDERS: ADMIT Registered Nurse; ATTEND Family Medicine
PROC: 4A023N7 Measurement of Cardiac Sampling and Pressure, Left Heart, Percutaneous Approach (ICD-10-PCS; 2022-09-05)
PROC: B211YZZ Fluoroscopy of Multiple Coronary Arteries using Other Contrast (ICD-10-PCS; 2022-09-05)
PROC: B21FYZZ Fluoroscopy of Other Bypass Graft using Other Contrast (ICD-10-PCS; 2022-09-05)
PROC: B218YZZ Fluoroscopy of Left Internal Mammary Bypass Graft using Other Contrast (ICD-10-PCS; 2022-09-05)
PROC: B215YZZ Fluoroscopy of Left Heart using Other Contrast (ICD-10-PCS; 2022-09-05)
PROC: 0JH606Z Insertion of Pacemaker, Dual Chamber into Chest Subcutaneous Tissue and Fascia, Open Approach (ICD-10-PCS; 2022-09-07)
PROC: 02H63JZ Insertion of Pacemaker Lead into Right Atrium, Percutaneous Approach (ICD-10-PCS; 2022-09-07)
PROC: 02HK3JZ Insertion of Pacemaker Lead into Right Ventricle, Percutaneous Approach (ICD-10-PCS; 2022-09-07)
PROC: 047P3ZZ Dilation of Right Anterior Tibial Artery, Percutaneous Approach (ICD-10-PCS; principal; 2022-09-10)
PROC: 047K3ZZ Dilation of Right Femoral Artery, Percutaneous Approach (ICD-10-PCS; 2022-09-10)
PROC: 047T3ZZ Dilation of Right Peroneal Artery, Percutaneous Approach (ICD-10-PCS; 2022-09-10)
PROC: 047M3ZZ Dilation of Right Popliteal Artery, Percutaneous Approach (ICD-10-PCS; 2022-09-10)
PROC: B41G1ZZ Fluoroscopy of Left Lower Extremity Arteries using Low Osmolar Contrast (ICD-10-PCS; 2022-09-10)
PROC: B41F1ZZ Fluoroscopy of Right Lower Extremity Arteries using Low Osmolar Contrast (ICD-10-PCS; 2022-09-10)
PROC: 04CK3ZZ Extirpation of Matter from Right Femoral Artery, Percutaneous Approach (ICD-10-PCS; 2022-09-10)
DX: I21.4 Non-ST elevation (NSTEMI) myocardial infarction (principal); I50.23 Acute on chronic systolic (congestive) heart failure; I44.2 Atrioventricular block, complete; F03.93 Unspecified dementia, unspecified severity, with mood disturbance; I70.203 Unspecified atherosclerosis of native arteries of extremities, bilateral legs; I24.9 Acute ischemic heart disease, unspecified; I27.21 Secondary pulmonary arterial hypertension; G40.409 Other generalized epilepsy and epileptic syndromes, not intractable, without status epilepticus; I27.20 Pulmonary hypertension, unspecified; Z20.822 Contact with and (suspected) exposure to COVID-19; I71.21 Aneurysm of the ascending aorta, without rupture; R91.1 Solitary pulmonary nodule; I48.91 Unspecified atrial fibrillation; E11.9 Type 2 diabetes mellitus without complications; E78.5 Hyperlipidemia, unspecified; H40.9 Unspecified glaucoma; H54.8 Legal blindness, as defined in USA; I11.0 Hypertensive heart disease with heart failure; W18.39XA Other fall on same level, initial encounter; I25.10 Atherosclerotic heart disease of native coronary artery without angina pectoris; Z88.0 Allergy status to penicillin; Z79.01 Long term (current) use of anticoagulants; Z83.3 Family history of diabetes mellitus; Z79.82 Long term (current) use of aspirin; Z79.899 Other long term (current) drug therapy; Z86.73 Personal history of transient ischemic attack (TIA), and cerebral infarction without residual deficits; Z87.891 Personal history of nicotine dependence; Z95.1 Presence of aortocoronary bypass graft; Y93.89 Activity, other specified; Y92.89 Other specified places as the place of occurrence of the external cause; Y99.8 Other external cause status
CPT/HCPCS: 33208; 36415; 37224; 37228; 70450; 71045; 71275; 75716; 80048; 80053; 80061; 80307; 80320; 81001; 83036; 83735; 83880; 84443; 84484; 85007; 85025; 85027; 85049; 85379; 85610; 85730; 86850; 86900; 86901; 87426; 93005; 93306; 93459; 93886; 93926; 93970; 95819; 96361; 96374; 97110; 97163; 97530; 99152; 99153; C1785; G0378; J2001; J2250; Q9967

== ENCOUNTER 2022-10-17 05:42 | Inpatient (IN) | payer MEDICARE, MEDICAID ==
[~2022-10-17] VITALS: Ht 162.6 cm; Wt 60.3 kg
[2022-10-17 07:10] LABS: INR 1.18 (0.9-1.15); Partial Thromboplastin Time 28.8 sec (24.6-33.4)
[2022-10-17 07:22] LABS: Albumin 2.8 g/dL (3.4-5.0); Anion Gap 8 (5-15); Blood Urea Nitrogen 58 mg/dL (7-18); Carbon Dioxide 24 mmol/L (21-32); Chloride 122 mmol/L (98-107); Glucose 114 mg/dL (74-106); Magnesium 3.2 mg/dL (1.6-2.6); Sodium 154 mmol/L (136-145)
[2022-10-17 07:26] LABS: Alanine Aminotransferase 27 U/L (16-61); Alkaline Phosphatase 78 U/L (45-117); Aspartate Aminotransferase 35 U/L (15-37); BUN/Creatinine Ratio 46.4; Blood Alcohol < 3.0 mg/dL (0-5); GFR African American 71 mL/min; GFR Non-African American 59 mL/min; Total Protein 7.7 g/dL (6.4-8.2)
[2022-10-17 07:52] LABS: Basophils # (auto) 0 10 ^3/uL (0-0.2); Basophils % (auto) 0.4 % (0.0-2.0); Eosinophils # (auto) 0 10 ^3/uL (0-0.8); Eosinophils % (auto) 0.1 % (0.0-7.0); Hematocrit 52.3 % (41.0-53.0); Hemoglobin 17.2 g/dL (13.5-17.5); Lymphocytes # (auto) 0.4 10 ^3/uL (0.4-5.4); Lymphocytes % (auto) 9.1 % (10.0-50.0); Mean Corpuscular Hemoglobin 31.5 pg (28.0-32.0); Mean Corpuscular Hgb Conc. 32.8 g/dL (32.0-36.0); Mean Corpuscular Volume 95.8 fL (80.0-100.0); Monocytes # (auto) 0.8 10 ^3/uL (0-1.3); Neutrophils # (auto) 3.1 10 ^3/uL (1.6-8.6); Neutrophils % (auto) 71.7 % (37.0-80.0); Nucleated Red Blood Cells % 0.9 %; Red Blood Cells 5.46 10^6/uL (4.5-5.90); Red Cell Distribution Width 15.7 % (11.8-14.3); White Blood Cell 4.3 10^3/uL (4.4-10.8)
[2022-10-17 07:53] LABS: Monocytes % (auto) 18.7 % (0.0-12.0)
[2022-10-17 12:35] LABS: Urine Bacteria NONE SEEN /hpf (None Seen); Urine Blood 3+ /uL (Negative); Urine Mucus FEW (None Seen); Urine Specific Gravity 1.024 (1.001-1.035); Urine WBC 16 /hpf (0 - 3)
[2022-10-17 13:11] LABS: Alcohol, Urine < 3.0 mg/dL (0-10); Amphetamine Screen, Urine NEGATIVE (NEGATIVE); Barbiturate Scree,Urine NEGATIVE (NEGATIVE); Benzodiazephine Screen, Urine NEGATIVE (NEGATIVE); Cannabinoid Screen, Urine NEGATIVE (NEGATIVE); Cocaine Screen, Urine NEGATIVE (NEGATIVE); Opiate Scree,Urine NEGATIVE (NEGATIVE); Phencyclidine Screen, Urine NEGATIVE (NEGATIVE)
[2022-10-17] MEDS ORDERED: cefTRIAXone 1GM/50ML D5W 50 ML IV ONE (14:45)
[2022-10-17] MEDS ORDERED: ALBUTEROL SULF HFA 90MCG INH 200DOSE IN PRN (15:15)
[2022-10-17] MEDS ORDERED: ACETAMINOPHEN 500 MG TAB PO PRN (15:15)
[2022-10-17] MEDS ORDERED: REMDESIVIR PER PHARMACY 0 ML IV SCH (15:15)
[2022-10-17] MEDS ORDERED: PANTOPRAZOLE 40 MG/10 ML VIAL INJ IV ONE (15:30)
[2022-10-17 15:35] LABS: Basophils # (auto) 0 10 ^3/uL (0-0.2); Basophils % (auto) 0.3 % (0.0-2.0); Eosinophils # (auto) 0 10 ^3/uL (0-0.8); Hematocrit 50.3 % (41.0-53.0); Hemoglobin 17.1 g/dL (13.5-17.5); Lymphocytes # (auto) 0.3 10 ^3/uL (0.4-5.4); Lymphocytes % (auto) 4.4 % (10.0-50.0); Mean Corpuscular Hemoglobin 32.9 pg (28.0-32.0); Mean Corpuscular Volume 96.6 fL (80.0-100.0); Monocytes # (auto) 0.9 10 ^3/uL (0-1.3); Monocytes % (auto) 13.8 % (0.0-12.0); Neutrophils # (auto) 5.3 10 ^3/uL (1.6-8.6); Neutrophils % (auto) 81.5 % (37.0-80.0); Nucleated Red Blood Cells % 0.3 %; Red Cell Distribution Width 15.4 % (11.8-14.3); White Blood Cell 6.5 10^3/uL (4.4-10.8)
[2022-10-17 15:43] VITALS: BP 96/78
[2022-10-17 15:54] LABS: Albumin 2.8 g/dL (3.4-5.0); Calcium 10.3 mg/dL (8.5-10.1); Magnesium 3.4 mg/dL (1.6-2.6); Potassium 4.8 mmol/L (3.5-5.1)
[2022-10-17 16:03] LABS: BUN/Creatinine Ratio 42.9; Bilirubin, Total 0.8 mg/dL (0.2-1.0); CRP High Sensitivity 8.27 mg/dL (< 0.3); Total Protein 8.3 g/dL (6.4-8.2)
[2022-10-17 16:11] LABS: Thyroid Stimulating Hormone 0.61 uIU/mL (0.358-3.74)
[2022-10-17] MEDS ORDERED: REMDESIVIR 200 MG in NS 210ml LOADING DOSE ADULT IV ONE (17:00)
[2022-10-17] MEDS: SOD CHL 0.45% 1,000 ML IV SCH (17:04)
[2022-10-17] MEDS: FERROUS SULFATE 325mg EC TAB PO SCH (19:15)
[2022-10-17] MEDS ORDERED: NITROGLYCERIN 0.4 MG SL TAB SL PRN (19:45)
[2022-10-17] MEDS ORDERED: MORPHINE SULFATE INJ 2 MG/ml SYRG IV PRN (19:45)
[2022-10-17 22:00] VITALS: BP 107/69
[2022-10-17] MEDS ORDERED: ATORVASTATIN 20 MG TAB PO SCH (22:00)
[2022-10-17] MEDS: SACUBITRIL-VALSARTAN 24mg/26mg TAB PO SCH (22:00)
[2022-10-17] MEDS: OXcarbazepine 300 MG TAB PO SCH (22:00)
[2022-10-17] MEDS ORDERED: TAMSULOSIN HYDROCHLORIDE 0.4 MG CAP PO SCH (22:00)
[2022-10-17] MEDS ORDERED: LORazepam 2MG/ML-1ML VIAL IV PRN (22:00)
[2022-10-18] VITALS (7 sets, daily range): BP systolic 107–142; BP diastolic 69–84
[2022-10-18] MEDS: SOD CHL 0.45% 1,000 ML IV SCH (03:04)
[2022-10-18 05:15] LABS: Basophils # (auto) 0 10 ^3/uL (0-0.2); Eosinophils # (auto) 0 10 ^3/uL (0-0.8)
[2022-10-18 05:17] LABS: Basophils % (auto) 0.2 % (0.0-2.0); Hematocrit 45.6 % (41.0-53.0); Hemoglobin 15.8 g/dL (13.5-17.5); Lymphocytes # (auto) 0.3 10 ^3/uL (0.4-5.4); Lymphocytes % (auto) 4.7 % (10.0-50.0); Mean Corpuscular Hemoglobin 35.6 pg (28.0-32.0); Mean Corpuscular Hgb Conc. 34.7 g/dL (32.0-36.0); Mean Corpuscular Volume 102.5 fL (80.0-100.0); Monocytes # (auto) 0.6 10 ^3/uL (0-1.3); Monocytes % (auto) 11.3 % (0.0-12.0); Neutrophils # (auto) 4.5 10 ^3/uL (1.6-8.6); Neutrophils % (auto) 83.8 % (37.0-80.0); Nucleated Red Blood Cells % 0.1 %; Red Blood Cells 4.45 10^6/uL (4.5-5.90); Red Cell Distribution Width 15.6 % (11.8-14.3); White Blood Cell 5.4 10^3/uL (4.4-10.8)
[2022-10-18 05:35] LABS: Albumin 2.5 g/dL (3.4-5.0); BUN/Creatinine Ratio 54.1; Calcium 9.4 mg/dL (8.5-10.1); Potassium 4.8 mmol/L (3.5-5.1)
[2022-10-18 05:38] LABS: Bilirubin, Total 0.7 mg/dL (0.2-1.0); Total Protein 7.1 g/dL (6.4-8.2)
[2022-10-18] MEDS: FERROUS SULFATE 325mg EC TAB PO SCH (08:00)
[2022-10-18] MEDS ORDERED: cefTRIAXone 1GM/50ML D5W 50 ML IV SCH (09:00)
[2022-10-18] MEDS: ASPirin-EC 81 mg tab PO SCH (09:59)
[2022-10-18] MEDS: SACUBITRIL-VALSARTAN 24mg/26mg TAB PO SCH (09:59)
[2022-10-18] MEDS: OXcarbazepine 300 MG TAB PO SCH (09:59)
[2022-10-18] MEDS ORDERED: DexAMETHasone SOD PHOS 10MG/1ML VIAL INJ IV SCH (10:00)
[2022-10-18] MEDS ORDERED: ZINC SULFATE 220mg CAP or TAB PO SCH (10:00)
[2022-10-18] MEDS ORDERED: CHOLECALCIFEROL (VITD3) 2,000 UNIT CAP/TAB PO SCH (10:00)
[2022-10-18] MEDS ORDERED: ASCORBIC ACID 1,000 MG TAB PO SCH (10:00)
[2022-10-18] MEDS: PANTOPRAZOLE 40 MG/10 ML VIAL INJ IV SCH (10:24)
[2022-10-18] MEDS: ENOXAPARIN SOD 30 MG/0.3 ML SYRINGE SC SCH (10:25)
[2022-10-18] MEDS: AZITHROMYCIN 500MG/ 250ML 250 ML IV SCH (10:25)
[2022-10-18] MEDS ORDERED: MEROPENEM 1GM IVPB 100 ML IV ONE (11:30)
[2022-10-18] MEDS ORDERED: PANTOPRAZOLE 40 MG/10 ML VIAL INJ IV ONE (11:45)
[2022-10-18] MEDS ORDERED: DEXTROSE (50%) 50ML SYRG IV PRN (11:45)
[2022-10-18] MEDS ORDERED: ACETAMINOPHEN 325 MG TAB PO PRN (12:45)
[2022-10-18] MEDS: ACCU-CHEK COMFORT CURVE STRIP VI SCH ×2 (13:18→18:01)
[2022-10-18] MEDS: InsuLIN REG 1unit/0.01ml Soln (100units/ml) SC SCH ×2 (13:18→18:00)
[2022-10-18] MEDS: D5W 5% 1,000 ML IV SCH ×2 (13:18→20:32)
[2022-10-18] MEDS ORDERED: REMDESIVIR 100mg 100 MG in SODIUM CHL 0.9% 230 ML IV SCH (15:00)
[2022-10-18] MEDS: MEROPENEM 1GM IVPB 100 ML IV SCH (17:19)
[2022-10-19] MEDS: ACCU-CHEK COMFORT CURVE STRIP VI SCH ×4 (00:16→16:38)
[2022-10-19 05:00] VITALS: BP 117/69
[2022-10-19] MEDS: MEROPENEM 1GM IVPB 100 ML IV SCH ×2 (05:11→17:04)
[2022-10-19] MEDS: InsuLIN REG 1unit/0.01ml Soln (100units/ml) SC SCH ×4 (05:51→16:38)
[2022-10-19] MEDS: D5W 5% 1,000 ML IV SCH (05:52)
[2022-10-19 06:20] LABS: Basophils # (auto) 0 10 ^3/uL (0-0.2); Basophils % (auto) 0.1 % (0.0-2.0); Eosinophils # (auto) 0 10 ^3/uL (0-0.8); Eosinophils % (auto) 0.2 % (0.0-7.0); Lymphocytes # (auto) 0.2 10 ^3/uL (0.4-5.4); Lymphocytes % (auto) 4.4 % (10.0-50.0); Monocytes # (auto) 0.5 10 ^3/uL (0-1.3)
[2022-10-19 06:23] LABS: Hematocrit 41.5 % (41.0-53.0); Hemoglobin 14.5 g/dL (13.5-17.5); Mean Corpuscular Hemoglobin 36.9 pg (28.0-32.0); Mean Corpuscular Hgb Conc. 34.9 g/dL (32.0-36.0); Mean Corpuscular Volume 105.7 fL (80.0-100.0); Monocytes % (auto) 10.8 % (0.0-12.0); Neutrophils # (auto) 3.8 10 ^3/uL (1.6-8.6); Neutrophils % (auto) 84.5 % (37.0-80.0); Nucleated Red Blood Cells % 0.3 %; Red Blood Cells 3.92 10^6/uL (4.5-5.90); Red Cell Distribution Width 15.8 % (11.8-14.3); White Blood Cell 4.5 10^3/uL (4.4-10.8)
[2022-10-19 06:49] LABS: Potassium 4.4 mmol/L (3.5-5.1)
[2022-10-19 06:55] LABS: BUN/Creatinine Ratio 66.2; Calcium 8.9 mg/dL (8.5-10.1)
[2022-10-19] MEDS: PANTOPRAZOLE 40 MG/10 ML VIAL INJ IV SCH ×2 (07:26→09:32)
[2022-10-19] MEDS: ASPirin-EC 81 mg tab PO SCH (08:22)
[2022-10-19 08:55] VITALS: BP 107/57
[2022-10-19] MEDS: AZITHROMYCIN 500MG/ 250ML 250 ML IV SCH (09:32)
[2022-10-19] MEDS: ENOXAPARIN SOD 30 MG/0.3 ML SYRINGE SC SCH (09:33)
[2022-10-19] MEDS ORDERED: PPN PER PHARMACY 0 ML IV SCH (11:00)
[2022-10-19] MEDS ORDERED: D5W 5% 1,000 ML IV SCH (11:00)
[2022-10-19 13:00] VITALS: BP 97/61
[2022-10-19 13:11] LABS: Albumin 2.3 g/dL (3.4-5.0); Calcium 9.1 mg/dL (8.5-10.1); Potassium 4.1 mmol/L (3.5-5.1)
[2022-10-19 13:16] LABS: Bilirubin, Total 0.6 mg/dL (0.2-1.0); Phosphorus 2.4 mg/dL (2.5-4.90)
[2022-10-19 13:35] LABS: BUN/Creatinine Ratio 67.2
[2022-10-19] MEDS ORDERED: POTASSIUM PHOSPHATE 22 MEQ in SODIUM CHL 0.9% 100 ML IV ONE (14:45)
[2022-10-19 17:00] VITALS: BP 117/69
[2022-10-19] MEDS ORDERED: AMINO ACID INFUSION IN D10W 1,000 ML IV NR (20:00)
[2022-10-19 22:00] VITALS: BP 94/58
[2022-10-20] MEDS: ACCU-CHEK COMFORT CURVE STRIP VI SCH ×4 (00:09→18:00)
[2022-10-20] MEDS: MEROPENEM 1GM IVPB 100 ML IV SCH ×2 (04:52→17:30)
[2022-10-20 05:00] VITALS: BP 120/86
[2022-10-20] MEDS: InsuLIN REG 1unit/0.01ml Soln (100units/ml) SC SCH ×4 (05:38→18:00)
[2022-10-20 09:05] VITALS: BP 107/60
[2022-10-20 09:07] LABS: Calcium 8.6 mg/dL (8.5-10.1); Potassium 4.3 mmol/L (3.5-5.1)
[2022-10-20 09:10] LABS: BUN/Creatinine Ratio 66.3; Bilirubin, Total 0.7 mg/dL (0.2-1.0); Phosphorus 1.8 mg/dL (2.5-4.90)
[2022-10-20] MEDS: D5W 5% 1,000 ML IV SCH (10:40)
[2022-10-20] MEDS: AZITHROMYCIN 500MG/ 250ML 250 ML IV SCH (10:47)
[2022-10-20] MEDS: PANTOPRAZOLE 40 MG/10 ML VIAL INJ IV SCH (10:47)
[2022-10-20] MEDS: ENOXAPARIN SOD 30 MG/0.3 ML SYRINGE SC SCH (10:49)
[2022-10-20] MEDS: ASPirin-EC 81 mg tab PO SCH (10:49)
[2022-10-20] MEDS ORDERED: POTASSIUM PHOSP 22MEQ(15MMOLE) in NS 100 ML IV ONE (11:00)
[2022-10-20] MEDS ORDERED: SODIUM PHOSP 20MEQ(15MMOL) IN NS 100 ML IV ONE (11:00)
[2022-10-20 11:43] VITALS: BP 114/62
[2022-10-20 13:00] VITALS: BP 124/83
[2022-10-20 17:27] VITALS: BP 95/66
[2022-10-20] MEDS ORDERED: PPN PER PHARMACY IV NR ×7 (20:00)
[2022-10-20 21:44] VITALS: BP 101/74
[2022-10-20 23:58] LABS: Protein, Urine 72.5 mg/dL (0.0-11.9)
[2022-10-21 05:00] VITALS: BP 104/64
[2022-10-21] MEDS: MEROPENEM 1GM IVPB 100 ML IV SCH ×2 (05:08→17:56)
[2022-10-21] MEDS: InsuLIN REG 1unit/0.01ml Soln (100units/ml) SC SCH ×5 (05:39→23:32)
[2022-10-21] MEDS: ACCU-CHEK COMFORT CURVE STRIP VI SCH ×5 (05:40→23:31)
[2022-10-21 05:55] LABS: Albumin 1.9 g/dL (3.4-5.0); Anion Gap 3 (5-15); Blood Urea Nitrogen 45 mg/dL (7-18); Calcium 8.2 mg/dL (8.5-10.1); Carbon Dioxide 24 mmol/L (21-32); Chloride 118 mmol/L (98-107); Glucose 113 mg/dL (74-106); Potassium 3.7 mmol/L (3.5-5.1); Sodium 145 mmol/L (136-145)
[2022-10-21 05:57] LABS: Alanine Aminotransferase 17 U/L (16-61); Aspartate Aminotransferase 31 U/L (15-37); BUN/Creatinine Ratio 59.2; GFR African American 126 mL/min; GFR Non-African American 104 mL/min
[2022-10-21 06:15] LABS: Alkaline Phosphatase 71 U/L (45-117); Bilirubin, Total 0.7 mg/dL (0.2-1.0); Magnesium 2.5 mg/dL (1.6-2.6); Phosphorus 2.3 mg/dL (2.5-4.90); Total Protein 6.6 g/dL (6.4-8.2)
[2022-10-21 06:47] LABS: Basophils # (auto) 0.1 10 ^3/uL (0-0.2); Basophils % (auto) 0.9 % (0.0-2.0); Eosinophils # (auto) 0.1 10 ^3/uL (0-0.8); Eosinophils % (auto) 0.7 % (0.0-7.0); Hematocrit 40.7 % (41.0-53.0); Hemoglobin 13.7 g/dL (13.5-17.5); Lymphocytes # (auto) 0.3 10 ^3/uL (0.4-5.4); Mean Corpuscular Hemoglobin 32.3 pg (28.0-32.0); Mean Corpuscular Hgb Conc. 33.5 g/dL (32.0-36.0); Mean Corpuscular Volume 96.2 fL (80.0-100.0); Monocytes # (auto) 0.6 10 ^3/uL (0-1.3); Monocytes % (auto) 8.4 % (0.0-12.0); Neutrophils # (auto) 5.9 10 ^3/uL (1.6-8.6); Nucleated Red Blood Cells % 0.2 %; Red Blood Cells 4.23 10^6/uL (4.5-5.90); Red Cell Distribution Width 15.6 % (11.8-14.3)
[2022-10-21] MEDS ORDERED: POTASSIUM PHOSPHATE 22 MEQ in SODIUM CHL 0.9% 100 ML IV ONE (08:15)
[2022-10-21 09:00] VITALS: BP 105/72
[2022-10-21] MEDS: PANTOPRAZOLE 40 MG/10 ML VIAL INJ IV SCH (10:39)
[2022-10-21] MEDS: ENOXAPARIN SOD 30 MG/0.3 ML SYRINGE SC SCH (10:42)
[2022-10-21] MEDS: ASPirin-EC 81 mg tab PO SCH (10:46)
[2022-10-21] MEDS: AZITHROMYCIN 500MG/ 250ML 250 ML IV SCH (11:00)
[2022-10-21 13:00] VITALS: BP 101/81
[2022-10-21] MEDS: D5W 5% 1,000 ML IV SCH (13:06)
[2022-10-21 17:00] VITALS: BP 106/78
[2022-10-21] MEDS ORDERED: PPN PER PHARMACY IV NR ×8 (20:00)
[2022-10-21 22:00] VITALS: BP 103/66
[2022-10-22 05:00] VITALS: BP 104/63
[2022-10-22] MEDS: InsuLIN REG 1unit/0.01ml Soln (100units/ml) SC SCH ×4 (05:22→23:36)
[2022-10-22] MEDS: MEROPENEM 1GM IVPB 100 ML IV SCH ×2 (05:22→17:18)
[2022-10-22] MEDS: ACCU-CHEK COMFORT CURVE STRIP VI SCH ×4 (05:22→23:35)
[2022-10-22 06:43] LABS: Potassium 3.9 mmol/L (3.5-5.1)
[2022-10-22 06:49] LABS: Albumin 1.8 g/dL (3.4-5.0); BUN/Creatinine Ratio 54.4; Magnesium 2.3 mg/dL (1.6-2.6)
[2022-10-22 06:51] LABS: Bilirubin, Total 0.6 mg/dL (0.2-1.0); Phosphorus 2.7 mg/dL (2.5-4.90); Total Protein 6.5 g/dL (6.4-8.2)
[2022-10-22] MEDS ORDERED: DOXYCYCLINE 100MG/250ML 250 ML IV SCH (07:30)
[2022-10-22 09:00] VITALS: BP_SYST 104; BP_SYST 106; BP_DIAS 49; BP_DIAS 70
[2022-10-22] MEDS ORDERED: ENOXAPARIN SOD 40 MG/0.4 ML SYRINGE SC SCH (10:00)
[2022-10-22] MEDS: ASPirin-EC 81 mg tab PO SCH (10:50)
[2022-10-22] MEDS: PANTOPRAZOLE 40 MG/10 ML VIAL INJ IV SCH (10:50)
[2022-10-22 13:00] VITALS: BP 115/73
[2022-10-22 17:07] VITALS: BP 108/67
[2022-10-22] MEDS: D5W 5% 1,000 ML IV SCH (17:24)
[2022-10-22] MEDS ORDERED: PPN PER PHARMACY IV NR ×9 (20:00)
[2022-10-22 22:00] VITALS: BP 110/71
[2022-10-22] MEDS: DOXYCYCLINE 100MG/250ML 250 ML IV SCH (23:30)
[2022-10-23 05:00] VITALS: BP 109/67
[2022-10-23] MEDS: MEROPENEM 1GM IVPB 100 ML IV SCH ×2 (05:23→17:43)
[2022-10-23] MEDS: InsuLIN REG 1unit/0.01ml Soln (100units/ml) SC SCH ×3 (06:00→18:00)
[2022-10-23] MEDS: ACCU-CHEK COMFORT CURVE STRIP VI SCH ×3 (06:14→18:26)
[2022-10-23 09:00] VITALS: BP 112/66
[2022-10-23] MEDS: ASPirin-EC 81 mg tab PO SCH (10:20)
[2022-10-23] MEDS: PANTOPRAZOLE 40 MG/10 ML VIAL INJ IV SCH (10:21)
[2022-10-23] MEDS: DOXYCYCLINE 100MG/250ML 250 ML IV SCH ×2 (11:06→23:50)
[2022-10-23 11:11] LABS: Basophils # (auto) 0 10 ^3/uL (0-0.2); Basophils % (auto) 0.3 % (0.0-2.0); Eosinophils # (auto) 0 10 ^3/uL (0-0.8); Eosinophils % (auto) 0.6 % (0.0-7.0); Hematocrit 35.8 % (41.0-53.0); Hemoglobin 12.5 g/dL (13.5-17.5); Lymphocytes # (auto) 0.3 10 ^3/uL (0.4-5.4); Lymphocytes % (auto) 5.9 % (10.0-50.0); Mean Corpuscular Hemoglobin 34.5 pg (28.0-32.0); Mean Corpuscular Hgb Conc. 34.9 g/dL (32.0-36.0); Mean Corpuscular Volume 98.7 fL (80.0-100.0); Monocytes # (auto) 0.4 10 ^3/uL (0-1.3); Monocytes % (auto) 7.6 % (0.0-12.0); Neutrophils # (auto) 4.7 10 ^3/uL (1.6-8.6); Neutrophils % (auto) 85.6 % (37.0-80.0); Nucleated Red Blood Cells % 0.2 %; Red Blood Cells 3.63 10^6/uL (4.5-5.90); Red Cell Distribution Width 14.8 % (11.8-14.3); White Blood Cell 5.5 10^3/uL (4.4-10.8)
[2022-10-23 11:16] LABS: Albumin 1.8 g/dL (3.4-5.0); Calcium 7.7 mg/dL (8.5-10.1); Magnesium 1.8 mg/dL (1.6-2.6); Potassium 3.7 mmol/L (3.5-5.1)
[2022-10-23 11:22] LABS: Bilirubin, Total 0.5 mg/dL (0.2-1.0); Total Protein 6.2 g/dL (6.4-8.2)
[2022-10-23 13:00] VITALS: BP 122/77
[2022-10-23] MEDS ORDERED: POTASSIUM PHOSP 22MEQ(15MMOLE) in NS 100 ML IV ONE (13:00)
[2022-10-23 16:32] VITALS: BP 136/79
[2022-10-23] MEDS ORDERED: PPN PER PHARMACY IV NR ×9 (20:00)
[2022-10-23 22:00] VITALS: BP 118/74
[2022-10-24] MEDS: ACCU-CHEK COMFORT CURVE STRIP VI SCH ×4 (00:29→18:04)
[2022-10-24 05:00] VITALS: BP 108/66
[2022-10-24] MEDS: MEROPENEM 1GM IVPB 100 ML IV SCH ×2 (05:21→17:53)
[2022-10-24] MEDS: InsuLIN REG 1unit/0.01ml Soln (100units/ml) SC SCH ×4 (05:44→18:00)
[2022-10-24 07:43] LABS: Basophils # (auto) 0 10 ^3/uL (0-0.2); Basophils % (auto) 0.4 % (0.0-2.0); Eosinophils # (auto) 0.1 10 ^3/uL (0-0.8); Eosinophils % (auto) 0.9 % (0.0-7.0); Hematocrit 39.2 % (41.0-53.0); Hemoglobin 13.4 g/dL (13.5-17.5); Lymphocytes # (auto) 0.5 10 ^3/uL (0.4-5.4); Lymphocytes % (auto) 7.6 % (10.0-50.0); Mean Corpuscular Hemoglobin 32.7 pg (28.0-32.0); Mean Corpuscular Hgb Conc. 34.2 g/dL (32.0-36.0); Mean Corpuscular Volume 95.7 fL (80.0-100.0); Monocytes # (auto) 1.1 10 ^3/uL (0-1.3); Monocytes % (auto) 16.7 % (0.0-12.0); Neutrophils # (auto) 4.9 10 ^3/uL (1.6-8.6); Neutrophils % (auto) 74.4 % (37.0-80.0); Nucleated Red Blood Cells % 0.7 %; Red Cell Distribution Width 14.5 % (11.8-14.3); White Blood Cell 6.6 10^3/uL (4.4-10.8)
[2022-10-24 08:00] LABS: Potassium 4.5 mmol/L (3.5-5.1)
[2022-10-24 08:05] LABS: Albumin 1.9 g/dL (3.4-5.0); Calcium 7.6 mg/dL (8.5-10.1); Phosphorus 2.8 mg/dL (2.5-4.90)
[2022-10-24 09:00] VITALS: BP 103/67
[2022-10-24] MEDS: ASPirin-EC 81 mg tab PO SCH (10:01)
[2022-10-24] MEDS: PANTOPRAZOLE 40 MG/10 ML VIAL INJ IV SCH (10:01)
[2022-10-24 13:00] VITALS: BP 99/65
[2022-10-24 17:00] VITALS: BP 115/75
[2022-10-24] MEDS ORDERED: PPN PER PHARMACY IV NR ×10 (20:00)
[2022-10-24 21:49] VITALS: BP 119/71
[2022-10-25] MEDS: ACCU-CHEK COMFORT CURVE STRIP VI SCH ×4 (00:54→17:59)
[2022-10-25] MEDS: MEROPENEM 1GM IVPB 100 ML IV SCH ×2 (04:51→17:59)
[2022-10-25 05:00] VITALS: BP 98/65
[2022-10-25] MEDS: InsuLIN REG 1unit/0.01ml Soln (100units/ml) SC SCH ×4 (06:00→18:00)
[2022-10-25 09:00] VITALS: BP 96/63
[2022-10-25 10:49] LABS: Albumin 1.9 g/dL (3.4-5.0); BUN/Creatinine Ratio 69.4; Magnesium 1.8 mg/dL (1.6-2.6); Phosphorus 2.5 mg/dL (2.5-4.90); Potassium 4.1 mmol/L (3.5-5.1)
[2022-10-25] MEDS: ASPirin-EC 81 mg tab PO SCH (10:53)
[2022-10-25] MEDS: PANTOPRAZOLE 40 MG/10 ML VIAL INJ IV SCH (11:21)
[2022-10-25] MEDS ORDERED: SODIUM PHOSPHATES 20 MEQ in SODIUM CHL 0.9% 100 ML IV ONE (11:30)
[2022-10-25] MEDS ORDERED: MORPHINE SULFATE INJ 2 MG/ml SYRG IV PRN (12:30)
[2022-10-25 13:00] VITALS: BP 116/72
[2022-10-25 16:40] VITALS: BP 117/66
[2022-10-25] MEDS ORDERED: PPN PER PHARMACY IV NR ×10 (20:00)
[2022-10-25 22:00] VITALS: BP 120/69
[2022-10-26] MEDS: ACCU-CHEK COMFORT CURVE STRIP VI SCH ×5 (00:02→23:48)
[2022-10-26] MEDS: MEROPENEM 1GM IVPB 100 ML IV SCH ×2 (04:42→18:56)
[2022-10-26 05:00] VITALS: BP 121/72
[2022-10-26] MEDS: InsuLIN REG 1unit/0.01ml Soln (100units/ml) SC SCH ×5 (06:00→23:48)
[2022-10-26 08:30] VITALS: BP 96/70
[2022-10-26] MEDS: ASPirin-EC 81 mg tab PO SCH (10:00)
[2022-10-26 10:47] LABS: Albumin 1.9 g/dL (3.4-5.0); Calcium 7.9 mg/dL (8.5-10.1); Magnesium 1.9 mg/dL (1.6-2.6); Potassium 3.9 mmol/L (3.5-5.1)
[2022-10-26 10:49] LABS: BUN/Creatinine Ratio 104.3
[2022-10-26] MEDS: PANTOPRAZOLE 40 MG/10 ML VIAL INJ IV SCH (10:57)
[2022-10-26 12:30] VITALS: BP 139/64
[2022-10-26] MEDS ORDERED: PPN PER PHARMACY IV NR ×10 (20:00)
[2022-10-26 22:00] VITALS: BP 112/81
[2022-10-27 05:00] VITALS: BP 148/84
[2022-10-27] MEDS: MEROPENEM 1GM IVPB 100 ML IV SCH ×2 (05:05→18:55)
[2022-10-27] MEDS: InsuLIN REG 1unit/0.01ml Soln (100units/ml) SC SCH ×3 (06:00→18:00)
[2022-10-27] MEDS: ACCU-CHEK COMFORT CURVE STRIP VI SCH ×3 (06:37→18:56)
[2022-10-27 09:00] VITALS: BP 139/77
[2022-10-27] MEDS: PANTOPRAZOLE 40 MG/10 ML VIAL INJ IV SCH (09:16)
[2022-10-27] MEDS ORDERED: ENOXAPARIN SOD 30 MG/0.3 ML SYRINGE SC ONE (12:30)
[2022-10-27 13:00] VITALS: BP 120/73
[2022-10-27 14:05] LABS: Albumin 1.9 g/dL (3.4-5.0); Calcium 8.4 mg/dL (8.5-10.1); Magnesium 1.9 mg/dL (1.6-2.6); Potassium 4.1 mmol/L (3.5-5.1)
[2022-10-27 14:08] LABS: BUN/Creatinine Ratio 77.4
[2022-10-27 14:11] LABS: Bilirubin, Total 0.4 mg/dL (0.2-1.0); Phosphorus 2.8 mg/dL (2.5-4.90); Total Protein 6.5 g/dL (6.4-8.2)
[2022-10-27 17:00] VITALS: BP 126/77
[2022-10-27] MEDS ORDERED: MAGNESIUM SULFATE 1GM/100ML 100 ML IV ONE (20:00)
[2022-10-27] MEDS ORDERED: PPN PER PHARMACY IV NR ×6 (20:00)
[2022-10-27] MEDS ORDERED: SODIUM PHOSPHATES 20 MEQ in SODIUM CHL 0.9% 100 ML IV ONE (21:00)
[2022-10-27 22:00] VITALS: BP 123/77
[2022-10-28] MEDS: ACCU-CHEK COMFORT CURVE STRIP VI SCH ×4 (00:11→18:22)
[2022-10-28 05:00] VITALS: BP 134/71
[2022-10-28] MEDS: MEROPENEM 1GM IVPB 100 ML IV SCH ×2 (05:25→18:01)
[2022-10-28] MEDS: InsuLIN REG 1unit/0.01ml Soln (100units/ml) SC SCH ×4 (05:26→18:00)
[2022-10-28 07:16] LABS: Basophils # (auto) 0 10 ^3/uL (0-0.2); Basophils % (auto) 0.5 % (0.0-2.0); Eosinophils # (auto) 0 10 ^3/uL (0-0.8); Eosinophils % (auto) 0.6 % (0.0-7.0); Hematocrit 35.7 % (41.0-53.0); Hemoglobin 12.4 g/dL (13.5-17.5); Lymphocytes # (auto) 0.4 10 ^3/uL (0.4-5.4); Lymphocytes % (auto) 11.5 % (10.0-50.0); Mean Corpuscular Hemoglobin 33.4 pg (28.0-32.0); Mean Corpuscular Hgb Conc. 34.8 g/dL (32.0-36.0); Monocytes # (auto) 0.3 10 ^3/uL (0-1.3); Monocytes % (auto) 8.9 % (0.0-12.0); Neutrophils # (auto) 2.9 10 ^3/uL (1.6-8.6); Neutrophils % (auto) 78.5 % (37.0-80.0); Nucleated Red Blood Cells % 0.4 %; Red Blood Cells 3.72 10^6/uL (4.5-5.90); Red Cell Distribution Width 14.5 % (11.8-14.3); White Blood Cell 3.7 10^3/uL (4.4-10.8)
[2022-10-28 07:39] LABS: Albumin 1.9 g/dL (3.4-5.0); BUN/Creatinine Ratio 65.6; Calcium 8.2 mg/dL (8.5-10.1); Magnesium 1.8 mg/dL (1.6-2.6)
[2022-10-28 07:42] LABS: Bilirubin, Total 0.4 mg/dL (0.2-1.0); Phosphorus 3.3 mg/dL (2.5-4.90); Total Protein 6.3 g/dL (6.4-8.2)
[2022-10-28 09:00] VITALS: BP 112/70
[2022-10-28] MEDS: PANTOPRAZOLE 40 MG/10 ML VIAL INJ IV SCH (09:55)
[2022-10-28] MEDS ORDERED: ENOXAPARIN SOD 30 MG/0.3 ML SYRINGE SC SCH (10:00)
[2022-10-28 13:00] VITALS: BP 113/71
[2022-10-28 17:00] VITALS: BP 127/74
[2022-10-28] MEDS ORDERED: PPN PER PHARMACY IV NR ×9 (20:00)
[2022-10-28 22:00] VITALS: BP 112/61
[2022-10-29] MEDS: ACCU-CHEK COMFORT CURVE STRIP VI SCH ×4 (00:45→17:36)
[2022-10-29 05:00] VITALS: BP 130/73
[2022-10-29] MEDS: MEROPENEM 1GM IVPB 100 ML IV SCH ×2 (05:07→17:42)
[2022-10-29] MEDS: InsuLIN REG 1unit/0.01ml Soln (100units/ml) SC SCH ×4 (06:00→17:36)
[2022-10-29] MEDS: DEXTROSE (50%) 50ML SYRG IV SCH ×3 (06:29→17:36)
[2022-10-29 09:27] VITALS: BP 136/79
[2022-10-29 09:50] LABS: BUN/Creatinine Ratio 77.8; Magnesium 1.6 mg/dL (1.6-2.6); Potassium 4.2 mmol/L (3.5-5.1)
[2022-10-29 09:53] LABS: Bilirubin, Total 0.4 mg/dL (0.2-1.0); Phosphorus 2.7 mg/dL (2.5-4.90); Total Protein 6.3 g/dL (6.4-8.2)
[2022-10-29] MEDS: ENOXAPARIN SOD 40 MG/0.4 ML SYRINGE SC SCH (10:30)
[2022-10-29] MEDS: PANTOPRAZOLE 40 MG/10 ML VIAL INJ IV SCH (10:30)
[2022-10-29 12:32] VITALS: BP 135/80
[2022-10-29 16:33] VITALS: BP 119/62
[2022-10-29] MEDS ORDERED: PPN PER PHARMACY IV NR ×9 (20:00)
[2022-10-29 22:00] VITALS: BP 118/67
[2022-10-30] MEDS: ACCU-CHEK COMFORT CURVE STRIP VI SCH ×4 (00:43→17:45)
[2022-10-30 05:00] VITALS: BP 107/71
[2022-10-30] MEDS: MEROPENEM 1GM IVPB 100 ML IV SCH ×2 (05:59→16:43)
[2022-10-30] MEDS: InsuLIN REG 1unit/0.01ml Soln (100units/ml) SC SCH ×4 (06:00→17:46)
[2022-10-30 08:30] VITALS: BP 140/61
[2022-10-30 09:20] VITALS: BP 140/61
[2022-10-30] MEDS: PANTOPRAZOLE 40 MG/10 ML VIAL INJ IV SCH (10:02)
[2022-10-30] MEDS: ENOXAPARIN SOD 40 MG/0.4 ML SYRINGE SC SCH (10:02)
[2022-10-30] MEDS ORDERED: PPN PER PHARMACY IV NR ×9 (11:15)
[2022-10-30 12:30] VITALS: BP 123/76
[2022-10-30 16:29] VITALS: BP 114/72
[2022-10-30 21:31] LABS: Albumin 1.9 g/dL (3.4-5.0); BUN/Creatinine Ratio 60.6; Calcium 8.3 mg/dL (8.5-10.1); Magnesium 2.1 mg/dL (1.6-2.6); Potassium 3.7 mmol/L (3.5-5.1)
[2022-10-30 21:33] LABS: Bilirubin, Total 0.4 mg/dL (0.2-1.0); Phosphorus 2.4 mg/dL (2.5-4.90); Total Protein 6.6 g/dL (6.4-8.2)
[2022-10-30 22:00] VITALS: BP 120/74
[2022-10-31] MEDS: ACCU-CHEK COMFORT CURVE STRIP VI SCH ×4 (00:55→18:23)
[2022-10-31] MEDS: InsuLIN REG 1unit/0.01ml Soln (100units/ml) SC SCH ×4 (00:55→18:00)
[2022-10-31 05:00] VITALS: BP 111/61
[2022-10-31] MEDS: MEROPENEM 1GM IVPB 100 ML IV SCH ×2 (05:39→18:32)
[2022-10-31] MEDS: ENOXAPARIN SOD 40 MG/0.4 ML SYRINGE SC SCH (08:45)
[2022-10-31] MEDS: PANTOPRAZOLE 40 MG/10 ML VIAL INJ IV SCH (08:45)
[2022-10-31 08:56] VITALS: BP 103/58
[2022-10-31 13:00] VITALS: BP 122/65
[2022-10-31 14:45] LABS: Magnesium 2.2 mg/dL (1.6-2.6); Potassium 3.7 mmol/L (3.5-5.1)
[2022-10-31 14:48] LABS: Bilirubin, Total 0.3 mg/dL (0.2-1.0); Phosphorus 2.3 mg/dL (2.5-4.90); Total Protein 6.4 g/dL (6.4-8.2)
[2022-10-31 14:56] LABS: BUN/Creatinine Ratio 68.8
[2022-10-31 16:39] VITALS: BP 141/75
[2022-10-31 20:00] VITALS: BP 135/75
[2022-10-31] MEDS ORDERED: PPN PER PHARMACY IV NR ×9 (20:00)
[2022-10-31 22:00] VITALS: BP 135/75
[2022-11-01] VITALS (7 sets, daily range): BP systolic 115–135; BP diastolic 69–80
[2022-11-01] MEDS: ACCU-CHEK COMFORT CURVE STRIP VI SCH ×4 (00:19→18:00)
[2022-11-01] MEDS: MEROPENEM 1GM IVPB 100 ML IV SCH ×2 (05:00→17:00)
[2022-11-01] MEDS: InsuLIN REG 1unit/0.01ml Soln (100units/ml) SC SCH ×4 (06:00→18:00)
[2022-11-01 06:57] LABS: Calcium 7.8 mg/dL (8.5-10.1); Magnesium 2.2 mg/dL (1.6-2.6); Potassium 4.1 mmol/L (3.5-5.1)
[2022-11-01 07:01] LABS: BUN/Creatinine Ratio 55.9; Bilirubin, Total 0.4 mg/dL (0.2-1.0); Phosphorus 2.7 mg/dL (2.5-4.90); Total Protein 6.2 g/dL (6.4-8.2)
[2022-11-01] MEDS: PANTOPRAZOLE 40 MG/10 ML VIAL INJ IV SCH (09:36)
[2022-11-01] MEDS ORDERED: [UNRECOGNIZED DRUG - OTHER] IV NR ×9 (20:00)
[2022-11-01] MEDS ORDERED: POTASSIUM CHLORIDE IV NR ×9 (20:00)
[2022-11-01] MEDS ORDERED: SODIUM PHOSPHATES IV NR ×9 (20:00)
[2022-11-01] MEDS ORDERED: FAT EMULSION IV NR ×9 (20:00)
[2022-11-02 05:00] VITALS: BP 136/71
[2022-11-02] MEDS: ACCU-CHEK COMFORT CURVE STRIP VI SCH ×4 (05:19→18:40)
[2022-11-02] MEDS: MEROPENEM 1GM IVPB 100 ML IV SCH ×2 (05:19→18:29)
[2022-11-02] MEDS: InsuLIN REG 1unit/0.01ml Soln (100units/ml) SC SCH ×4 (05:20→18:40)
[2022-11-02 05:36] LABS: Basophils # (auto) 0 10 ^3/uL (0-0.2); Eosinophils # (auto) 0.1 10 ^3/uL (0-0.8); Eosinophils % (auto) 1.9 % (0.0-7.0); Lymphocytes # (auto) 0.4 10 ^3/uL (0.4-5.4); Monocytes # (auto) 0.5 10 ^3/uL (0-1.3)
[2022-11-02 05:38] LABS: Basophils % (auto) 0.8 % (0.0-2.0); Hemoglobin 12.1 g/dL (13.5-17.5); Lymphocytes % (auto) 8.7 % (10.0-50.0); Mean Corpuscular Hgb Conc. 35.6 g/dL (32.0-36.0); Mean Corpuscular Volume 101.2 fL (80.0-100.0); Neutrophils # (auto) 3.2 10 ^3/uL (1.6-8.6); Neutrophils % (auto) 76.6 % (37.0-80.0); Nucleated Red Blood Cells % 0.2 %; Red Blood Cells 3.36 10^6/uL (4.5-5.90); Red Cell Distribution Width 15.1 % (11.8-14.3); White Blood Cell 4.2 10^3/uL (4.4-10.8)
[2022-11-02 05:46] LABS: Albumin 2.1 g/dL (3.4-5.0); Calcium 8.1 mg/dL (8.5-10.1); Magnesium 2.1 mg/dL (1.6-2.6)
[2022-11-02 05:49] LABS: BUN/Creatinine Ratio 59.4; Bilirubin, Total 0.7 mg/dL (0.2-1.0); Phosphorus 3.1 mg/dL (2.5-4.90); Total Protein 6.4 g/dL (6.4-8.2)
[2022-11-02 05:52] LABS: INR 1.15 (0.9-1.15); Partial Thromboplastin Time 30.2 sec (24.6-33.4)
[2022-11-02 08:00] VITALS: BP 134/64
[2022-11-02] MEDS ORDERED: diphenhdrAMINE HCL 50 MG/1 ML VL ONE (08:06)
[2022-11-02] MEDS ORDERED: LIDOCAINE VISCOUS 2% 15ML UD ONE (08:06)
[2022-11-02] MEDS ORDERED: MIDAZOLAM HCL 2MG/2ML 2ml VIAL (1mg/ml) ONE ×2 (08:06→16:05)
[2022-11-02] MEDS ORDERED: NALOXONE HCL 0.4 MG/ML VIAL ONE (08:06)
[2022-11-02] MEDS ORDERED: fentaNYL CITRATE 100 MCG/2 ML VL ONE ×2 (08:07→16:05)
[2022-11-02 08:55] VITALS: BP 134/64
[2022-11-02] MEDS: PANTOPRAZOLE 40 MG/10 ML VIAL INJ IV SCH (10:26)
[2022-11-02 12:33] VITALS: BP 110/69
[2022-11-02] MEDS ORDERED: ONDANSETRON HCL 4 MG/2 ML VIAL ONE (16:57)
[2022-11-02] MEDS ORDERED: LIDOCAINE 2% (LOCAL ANESTH.) PF 5ml SDV ONE (16:57)
[2022-11-02] MEDS ORDERED: CLINDAMYCIN 300MG IV 50 ML IV ONE (17:00)
[2022-11-02] MEDS ORDERED: ONDANSETRON HCL 4 MG/2 ML VIAL IV PRN (17:30)
[2022-11-02] MEDS ORDERED: PROPOFOL 10 MG/ML 20 ML IV ONE (17:33)
[2022-11-02] MEDS ORDERED: PPN PER PHARMACY IV NR ×9 (20:00)
[2022-11-02 22:00] VITALS: BP 118/71
[2022-11-03 05:00] VITALS: BP 133/74
[2022-11-03] MEDS: ACCU-CHEK COMFORT CURVE STRIP VI SCH ×4 (05:37→18:47)
[2022-11-03] MEDS: InsuLIN REG 1unit/0.01ml Soln (100units/ml) SC SCH ×4 (05:38→18:00)
[2022-11-03] MEDS: MEROPENEM 1GM IVPB 100 ML IV SCH ×2 (05:39→18:05)
[2022-11-03] MEDS: ENSURE CLEAR Apple 8oz Carton PO SCH ×3 (06:00→18:00)
[2022-11-03 07:18] LABS: Albumin 2.1 g/dL (3.4-5.0); Magnesium 1.9 mg/dL (1.6-2.6); Potassium 4.2 mmol/L (3.5-5.1)
[2022-11-03 07:22] LABS: Bilirubin, Total 0.5 mg/dL (0.2-1.0); Phosphorus 3.1 mg/dL (2.5-4.90); Total Protein 6.4 g/dL (6.4-8.2)
[2022-11-03 09:00] VITALS: BP 134/74
[2022-11-03] MEDS: PANTOPRAZOLE 40 MG/10 ML VIAL INJ IV SCH (11:26)
[2022-11-03] MEDS ORDERED: GASTROGRAFIN 30 ML SOL ONE (11:45)
[2022-11-03 13:00] VITALS: BP 106/66
[2022-11-03 17:00] VITALS: BP 117/70
[2022-11-03] MEDS ORDERED: PPN PER PHARMACY IV NR ×9 (20:00)
[2022-11-03 22:00] VITALS: BP 116/71
[2022-11-04] MEDS: InsuLIN REG 1unit/0.01ml Soln (100units/ml) SC SCH ×4 (00:09→17:59)
[2022-11-04] MEDS: ACCU-CHEK COMFORT CURVE STRIP VI SCH ×4 (00:12→17:54)
[2022-11-04 05:00] VITALS: BP 126/74
[2022-11-04] MEDS: ENSURE CLEAR Apple 8oz Carton PO SCH ×4 (06:00→18:54)
[2022-11-04] MEDS: MEROPENEM 1GM IVPB 100 ML IV SCH ×2 (06:37→17:54)
[2022-11-04 07:21] LABS: BUN/Creatinine Ratio 74.2; Bilirubin, Total 0.6 mg/dL (0.2-1.0); Calcium 8.1 mg/dL (8.5-10.1); Potassium 4.4 mmol/L (3.5-5.1)
[2022-11-04 07:22] LABS: Albumin 1.8 g/dL (3.4-5.0); Total Protein 6.1 g/dL (6.4-8.2)
[2022-11-04 08:00] VITALS: BP 112/69
[2022-11-04 08:15] VITALS: BP 112/69
[2022-11-04] MEDS: PANTOPRAZOLE 40 MG/10 ML VIAL INJ IV SCH (10:13)
[2022-11-04 12:00] VITALS: BP 141/79
[2022-11-04 16:00] VITALS: BP 134/80
[2022-11-04] MEDS: Juven Fruit Punch Powder PACKET 28.8gm PO SCH (18:54)
[2022-11-04] MEDS: Glucerna 1.2 Cal 1Liter BOTTLE GT SCH (18:55)
[2022-11-04] MEDS ORDERED: PPN PER PHARMACY IV NR ×9 (20:00)
[2022-11-04 22:00] VITALS: BP 119/68
[2022-11-05 05:00] VITALS: BP 122/74
[2022-11-05] MEDS: MEROPENEM 1GM IVPB 100 ML IV SCH (05:15)
[2022-11-05] MEDS: ACCU-CHEK COMFORT CURVE STRIP VI SCH ×4 (05:15→17:29)
[2022-11-05] MEDS: ENSURE CLEAR Apple 8oz Carton PO SCH ×2 (05:15)
[2022-11-05] MEDS: InsuLIN REG 1unit/0.01ml Soln (100units/ml) SC SCH ×4 (05:30→17:29)
[2022-11-05 08:43] VITALS: BP 101/62
[2022-11-05] MEDS: Juven Fruit Punch Powder PACKET 28.8gm PO SCH ×2 (09:31→17:29)
[2022-11-05] MEDS: PANTOPRAZOLE 40 MG/10 ML VIAL INJ IV SCH (09:32)
[2022-11-05 09:58] LABS: Basophils # (auto) 0 10 ^3/uL (0-0.2); Basophils % (auto) 0.7 % (0.0-2.0); Eosinophils # (auto) 0.2 10 ^3/uL (0-0.8); Eosinophils % (auto) 4.4 % (0.0-7.0); Hematocrit 36.8 % (41.0-53.0); Hemoglobin 11.9 g/dL (13.5-17.5); Lymphocytes # (auto) 0.4 10 ^3/uL (0.4-5.4); Lymphocytes % (auto) 11.8 % (10.0-50.0); Mean Corpuscular Hemoglobin 30.6 pg (28.0-32.0); Mean Corpuscular Hgb Conc. 32.3 g/dL (32.0-36.0); Monocytes # (auto) 0.6 10 ^3/uL (0-1.3); Monocytes % (auto) 15.4 % (0.0-12.0); Neutrophils # (auto) 2.4 10 ^3/uL (1.6-8.6); Neutrophils % (auto) 67.7 % (37.0-80.0); Nucleated Red Blood Cells % 0.3 %; Red Blood Cells 3.88 10^6/uL (4.5-5.90); Red Cell Distribution Width 15.4 % (11.8-14.3); White Blood Cell 3.6 10^3/uL (4.4-10.8)
[2022-11-05 11:00] LABS: Albumin 1.9 g/dL (3.4-5.0); Calcium 8.2 mg/dL (8.5-10.1); Magnesium 2.4 mg/dL (1.6-2.6); Potassium 3.7 mmol/L (3.5-5.1)
[2022-11-05 11:10] LABS: Bilirubin, Total 0.3 mg/dL (0.2-1.0); Phosphorus 2.6 mg/dL (2.5-4.90); Total Protein 6.5 g/dL (6.4-8.2)
[2022-11-05 11:58] LABS: BUN/Creatinine Ratio 117.4
[2022-11-05 13:09] VITALS: BP 110/67
[2022-11-05 17:09] VITALS: BP 111/66
[2022-11-05] MEDS: levoFLOXacin 500 MG TAB PO SCH (17:29)
[2022-11-05 22:00] VITALS: BP 118/73
[2022-11-06 05:00] VITALS: BP 138/72
[2022-11-06] MEDS: ACCU-CHEK COMFORT CURVE STRIP VI SCH ×4 (05:55→17:56)
[2022-11-06] MEDS: InsuLIN REG 1unit/0.01ml Soln (100units/ml) SC SCH ×4 (05:56→17:56)
[2022-11-06] MEDS: Glucerna 1.2 Cal 1Liter BOTTLE GT SCH (07:07)
[2022-11-06 09:00] VITALS: BP 148/84
[2022-11-06] MEDS: PANTOPRAZOLE 40 MG/10 ML VIAL INJ IV SCH (10:45)
[2022-11-06 13:00] VITALS: BP 133/88
[2022-11-06] MEDS: Juven Fruit Punch Powder PACKET 28.8gm PO SCH ×2 (13:35→19:34)
[2022-11-06] MEDS ORDERED: levoFLOXacin 500 MG TAB PO SCH (17:00)
[2022-11-06 17:07] VITALS: BP 136/79
[2022-11-06] MEDS: levoFLOXacin 500 MG TAB PO SCH (17:56)
[2022-11-06] MEDS: levETIRAcetam 500 MG/5ML ORAL SOLN UD GT SCH (21:22)
[2022-11-06 22:00] VITALS: BP 119/65
[2022-11-07] MEDS: InsuLIN REG 1unit/0.01ml Soln (100units/ml) SC SCH ×4 (00:48→17:59)
[2022-11-07 05:00] VITALS: BP 109/64
[2022-11-07] MEDS: Glucerna 1.2 Cal 1Liter BOTTLE GT SCH (05:55)
[2022-11-07] MEDS: ACCU-CHEK COMFORT CURVE STRIP VI SCH ×4 (05:56→17:59)
[2022-11-07 09:07] VITALS: BP 116/67
[2022-11-07] MEDS: Juven Fruit Punch Powder PACKET 28.8gm PO SCH ×2 (10:07→19:37)
[2022-11-07] MEDS: levETIRAcetam 500 MG/5ML ORAL SOLN UD GT SCH ×2 (10:07→21:30)
[2022-11-07] MEDS: PANTOPRAZOLE 40 MG/10 ML VIAL INJ IV SCH (10:08)
[2022-11-07 13:00] VITALS: BP 95/60
[2022-11-07 17:07] VITALS: BP 110/64
[2022-11-07] MEDS: levoFLOXacin 500 MG TAB PO SCH (19:36)
[2022-11-07 22:00] VITALS: BP 119/68
[2022-11-08] MEDS: ACCU-CHEK COMFORT CURVE STRIP VI SCH ×4 (01:45→17:45)
[2022-11-08] MEDS: Glucerna 1.2 Cal 1Liter BOTTLE GT SCH (01:47)
[2022-11-08 05:00] VITALS: BP 136/77
[2022-11-08] MEDS: InsuLIN REG 1unit/0.01ml Soln (100units/ml) SC SCH ×4 (06:00→17:45)
[2022-11-08] MEDS: PANTOPRAZOLE 40 MG/10 ML VIAL INJ IV SCH (08:49)
[2022-11-08] MEDS: levETIRAcetam 500 MG/5ML ORAL SOLN UD GT SCH (08:49)
[2022-11-08] MEDS: Juven Fruit Punch Powder PACKET 28.8gm PO SCH ×2 (08:50→17:45)
[2022-11-08 09:00] VITALS: BP 124/72
[2022-11-08 12:32] VITALS: BP 119/66
[2022-11-08 16:33] VITALS: BP 119/66
[2022-11-08 17:07] VITALS: BP 121/69
[2022-11-08] MEDS: levoFLOXacin 500 MG TAB PO SCH (17:44)
== END 2022-11-08 20:30 | disposition home health service (06) | DRG 871 ==
LOC: EDBD 05:42 → ER 05:42 → TELE 19:46 → TELE-EAST 21:32
PROVIDERS: ADMIT Registered Nurse; ATTEND Internal Medicine
PROC: 05HA33Z Insertion of Infusion Device into Left Brachial Vein, Percutaneous Approach (ICD-10-PCS; 2022-10-29)
PROC: B54NZZA Ultrasonography of Left Upper Extremity Veins, Guidance (ICD-10-PCS; 2022-10-29)
PROC: 0DJ08ZZ Inspection of Upper Intestinal Tract, Via Natural or Artificial Opening Endoscopic (ICD-10-PCS; 2022-11-02)
PROC: 0DH63UZ Insertion of Feeding Device into Stomach, Percutaneous Approach (ICD-10-PCS; principal; 2022-11-02 16:00)
DX: A41.9 Sepsis, unspecified organism (principal); G92.8 Other toxic encephalopathy; L89.153 Pressure ulcer of sacral region, stage 3; U07.1 COVID-19; J12.82 Pneumonia due to coronavirus disease 2019; N17.0 Acute kidney failure with tubular necrosis; I21.A1 Myocardial infarction type 2; J69.0 Pneumonitis due to inhalation of food and vomit; E44.0 Moderate protein-calorie malnutrition; E87.0 Hyperosmolality and hypernatremia; N39.0 Urinary tract infection, site not specified; Z68.1 Body mass index [BMI] 19.9 or less, adult; E11.51 Type 2 diabetes mellitus with diabetic peripheral angiopathy without gangrene; E78.5 Hyperlipidemia, unspecified; E86.0 Dehydration; G40.909 Epilepsy, unspecified, not intractable, without status epilepticus; I25.10 Atherosclerotic heart disease of native coronary artery without angina pectoris; I48.91 Unspecified atrial fibrillation; K29.70 Gastritis, unspecified, without bleeding; G30.9 Alzheimer's disease, unspecified; F02.80 Dementia in other diseases classified elsewhere, unspecified severity, without behavioral disturbance, psychotic disturbance, mood disturbance, and anxiety; F32.A Depression, unspecified; H54.3 Unqualified visual loss, both eyes; K21.9 Gastro-esophageal reflux disease without esophagitis; R31.9 Hematuria, unspecified; R80.9 Proteinuria, unspecified; R13.12 Dysphagia, oropharyngeal phase; D69.6 Thrombocytopenia, unspecified; I11.0 Hypertensive heart disease with heart failure; I50.9 Heart failure, unspecified; Z91.81 History of falling; I25.2 Old myocardial infarction; Z79.82 Long term (current) use of aspirin; N40.0 Benign prostatic hyperplasia without lower urinary tract symptoms; Z95.0 Presence of cardiac pacemaker; Z79.899 Other long term (current) drug therapy; Z82.79 Family history of other congenital malformations, deformations and chromosomal abnormalities; Z83.3 Family history of diabetes mellitus; Z86.73 Personal history of transient ischemic attack (TIA), and cerebral infarction without residual deficits; Z87.891 Personal history of nicotine dependence; Z88.0 Allergy status to penicillin
CPT/HCPCS: 36415; 36600; 70450; 71045; 71275; 74018; 74176; 76775; 80048; 80053; 80069; 80307; 80320; 81001; 82306; 82570; 82607; 82728; 82805; 82962; 83036; 83605; 83615; 83690; 83735; 84100; 84156; 84300; 84443; 84478; 84484; 85025; 85379; 85610; 85730; 86141; 86850; 86900; 86901; 87040; 87077; 87081; 87186; 87426; 92507; 92610; 93005; 95819; 96365; 96375; 97110; 97116; 97163; 97530; 99291; C9113; G0378; J0696; J1815; J2001; J2185; J2250; J2405; J2704; J3490; J7042; J7060